=== PATIENT | female | born 1990 | race African-American/Black ===

== ENCOUNTER 2018-05-27 21:41 | Emergency (ER) | payer OTHER ==
--- NOTE | 2018-05-27 21:46 | PDOC ---
History of Present Illness - History of Present Illness Initial Comments: 05/27/18 22:05 The patient is a 28 year old female, with no significant past medical history, who presents to the emergency department with, 2 hours of sudden onset, 10/10 left flank pain. Patient notes that an hour after the flank pain onset she began to experience nausea with 5 episodes of nonbloody, nonbilious emesis. The patient endorses associated subjective fevers and chills, prompting her visit to the ER tonight. She denies similar episodes in the past. She denies a history of kidney stones. She denies recent headache or dizziness. She denies recent nausea, vomit, diarrhea or constipation. She denies recent dysuria, frequency, urgency or hematuria. She denies recent chest pain or shortness of breath. PAST MEDICAL HISTORY: no significant history PAST SURGICAL HISTORY: no significant history FAMILY HISTORY: no pertinent history SOCIAL HISTORY: Pt lives with family and is employed. MEDICATIONS: reviewed ALLERGIES: As per nursing notes ROS: +General: Subjective fevers and chills. No weakness, no weight loss HEENT: No change in vision. No sore throat,. No ear pain CardioVascular: No chest pain or shortness of breath Respiratory:No cough, or wheezing. +Gastrointestinal: Nausea. Vomiting. no diarrhea or constipation, No rectal bleeding Genitourinary: Left flank pain. No dysuria, hematuria, or frequency Musculoskeletal: No joint or muscle pain or swelling Neurologic: No headache, vertigo, dizziness or loss of consciousness Psychiatric: nor depression Skin: No rashes or easy bruising Endocrine: no increased thirst or abnormal weight change Allergic: no skin or latex allergy All other systems reviewed and normal Physical Exam: GENERAL: The patient is awake, alert, and fully oriented, in no acute distress. HEAD: Normal with no signs of trauma. EYES: Pupils equal, round and reactive to light, extraocular movements intact, sclera anicteric, conjunctiva clear. EXTREMITIES: Normal range of motion, no edema. +ABDOMEN/BACK: Left CVA/Flank tenderness. NEUROLOGICAL: Normal speech, normal gait. PSYCH: Normal mood, normal affect. SKIN: Warm, Dry, normal turgor, no rashes or lesions noted. <Reva Díaz - Last Filed: 05/27/18 22:04> - General History Source: Patient Exam Limitations: No Limitations - History of Present Illness Initial Comments: 05/27/18 23:24 A portion of this note was documented by scribe services under my direction. I have reviewed the details of the note, within reason, and agree with the documentation. The case summary and management plan written by me. Assessment and plan: This is a 28 her old female who comes in complaining of acute onset left flank pain radiating to her left lower quadrant. Patient said pain is associated with some nausea. Patient denies history of similar pain in the past. Patient denies history of kidney stones in the past. Patient has been unable to urinate since she had the pain so does not know if there is blood in her urine. Patient is otherwise healthy. Workup was initiated including CBC, comp, CAT scan of abdomen and pelvis to rule out stone Patient medicated with Toradol, 05/27/18 23:55 05/28/18 00:[address] was positive for a 2.9 mm obstructing distal left ureteral stone at the left UVJ causing some hydronephrosis and hydroureter. There is also a nonobstructing left renal stone noted as well Patient's urine is positive for nitrates, white cells red cells and bacteria. Patient was given a gram of ceftriaxone for her urinary tract infection. Patient has a urinary tract infection and a 2.6 mm stone at the left UVJ. Dr. Gurpreet James was called and discussed case with him. Dr. Eugene. He is a urologist and said that since the stone is small and asked left UVJ. It should pass within the next day or so. Patient is tolerating by mouth's. Her pain is controlled and she prefers to go home rather than be admitted. Patient was given IV antibiotics and will be discharged home on ampicillan. <Tosha Figueroa I - Last Filed: 05/28/18 01:31> - General Chief Complaint: Pain, Acute Stated Complaint: LT FLANK PAIN Time Seen by Provider: 05/27/18 21:45 Past History <Reva Díaz - Last Filed: 05/27/18 22:04> - Past Medical History Asthma: Yes - Suicide/Smoking/Psychosocial Hx Smoking History: Never smoked Hx Alcohol Use: No Substance Use Type: None <Tosha Figueroa I - Last Filed: 05/28/18 01:31> - Past Medical History Allergies/Adverse Reactions: Allergies Allergy/AdvReac Type Severity Reaction Status Date / Time No Known Allergies Allergy Verified 12/02/13 14:56 Home Medications: Ambulatory Orders Ampicillin Trihydrate [Ampicillin Trihydrate Capsule] 500 mg PO BID #20 cap *Physical Exam - Vital Signs Last Vital Signs Temp Pulse Resp BP Pulse Ox 97.6 F 66 18 141/119 H 100 05/27/18 21:44 05/27/18 21:44 05/27/18 21:44 05/27/18 21:44 05/27/18 21:44 <Reva Díaz - Last Filed: 05/27/18 22:04> *DC/Admit/Observation/Transfer - Attestations Scribe Attestion: 05/27/18 22:05 Documentation prepared by Reva Díaz, acting as medical examiner for Tosha Figueroa MD. <Reva Díaz - Last Filed: 05/27/18 22:04> - Discharge Dispostion Decision to Admit order: No <Tosha Figueroa I - Last Filed: 05/28/18 01:31> Diagnosis at time of Disposition: Renal colic on left side, Cystitis - Discharge Dispostion Disposition: HOME Condition at time of disposition: Stable - Prescriptions Prescriptions: Ampicillin Trihydrate [Ampicillin Trihydrate Capsule] 500 mg PO BID #20 cap - Referrals Referrals: Ijeoma Sagastume MD [Primary Care Provider] - Gilson Haji MD [Staff Physician] - - Patient Instructions Additional Instructions: For the infection take Ampicillan one tablet twice a day for 10 days. For the pain take Percocet one tablet as often as every 4-6 hours if needed. For nausea take Zofran 1 tablet as often as every 6-[address] as needed[address] Dr. Eugene and get an appointment for this week if possible. Return to the emergency department immediately with ANY new, persistent or worsening symptoms. Continue any medications as previously prescribed by your physician. You should follow up with your primary doctor as soon as possible regarding today's emergency department visit. . Please make sure your doctor reviews the results of your emergency evaluation. Thank you for coming to the Emergency Department today for your care. It was a pleasure to see you today. Please note that your evaluation is INCOMPLETE until you follow-up with your doctor. - Post Discharge Activity
[2018-05-27] MEDS ORDERED: ONDANSETRON 4 MG/2 ML VIAL IVPB ONE (21:47)
[2018-05-27] MEDS ORDERED: morphine CARPU-JECT 2 MG/1 ML DISP.SYRIN IVPUSH ONE (21:47)
[2018-05-27] MEDS ORDERED: KETOROLAC TROMETHAMINE 30 MG/1 ML VIAL IVPUSH ONE (21:47)
[2018-05-27] MEDS ORDERED: SODIUM CHLORIDE 1,000 ML IV ONE (21:47)
[2018-05-27 21:48] VITALS: BP 141/119; PULSE 66; TEMP 97.6; BMI 30.7
[2018-05-27] MEDS ORDERED: morphine SULFATE 4 MG/ML VIAL ONE (22:11)
[2018-05-27] MEDS ORDERED: ONDANSETRON 4 MG/2 ML VIAL ONE (22:11)
[2018-05-27] MEDS ORDERED: KETOROLAC TROMETHAMINE 30 MG/1 ML VIAL ONE (22:11)
[2018-05-27] MEDS ORDERED: KETOROLAC TROMETHAMINE 60 MG/2 ML VIAL IM ONE (22:30)
[2018-05-27] MEDS ORDERED: KETOROLAC TROMETHAMINE 60 MG/2 ML VIAL ONE (22:53)
[2018-05-27 23:47] LABS: HCG,QUALITATIVE URINE Negative
[2018-05-27 23:49] LABS: URINE APPEARANCE Slightly; URINE BILIRUBIN Negative (NEGATIVE); URINE COLOR Yellow; URINE GLUCOSE (UA) Negative (NEGATIVE); URINE KETONE 2+ (NEGATIVE); URINE LEUK ESTERASE 2+ (NEGATIVE); URINE NITRITE Negative (NEGATIVE); URINE PROTEIN 1+ (NEGATIVE)
[2018-05-27 23:50] LABS: EPI CELLS FEW /HPF; URINE BACTERIA 2+ /hpf (NEGATIVE); URINE RBC 40-60 /hpf (0-3)
[2018-05-28] MEDS ORDERED: cefTRIAXone SODIUM 1 GM VIAL ONE (00:32)
[2018-05-28] MEDS: CEFTRIAXONE 1 GM in DEXTROSE 5%-WATER - 100 ML IVPB ONE (00:34)
[2018-05-28] MEDS ORDERED: morphine CARPU-JECT 4 MG/1 ML DISP.SYRIN IVPUSH ONE (01:14)
[2018-05-28] MEDS ORDERED: morphine SULFATE 4 MG/ML VIAL ONE (01:17)
[2018-05-28 02:20] LABS: INR 1.09 (0.83-1.09); PROTHROMBIN TIME (PATIENT) 12.9 SEC (9.7-13.0)
[2018-05-28 02:23] LABS: ACTIVATED PTT 25.4 SECONDS (25.2-36.5)
[2018-05-28 02:37] LABS: ALK PHOS 123 U/L (45-117); ANION GAP 9 MMOL/L (8-16); BILIRUBIN,TOTAL 0.2 mg/dL (0.2-1); BLOOD UREA NITROGEN 18 mg/dL (7-18); CALCIUM 8.8 mg/dL (8.5-10.1); CHLORIDE 110 mmol/L (98-107); CO2 24 mmol/L (21-32); CREATININE 1.1 mg/dL (0.55-1.3); GLUCOSE,RANDOM 103 mg/dL (74-106); POTASSIUM 4.3 mmol/L (3.5-5.1); SGOT/AST 15 U/L (15-37); SGPT/ALT 21 U/L (13-61); SODIUM 143 mmol/L (136-145); TOT PROT 8.2 g/dl (6.4-8.2)
[2018-05-28 02:45] LABS: BASO % 0.2 % (0-2.0); HEMATOCRIT 34.6 % (32.4-45.2); HEMOGLOBIN 10.3 GM/dL (10.7-15.3); LYMPH % 4.4 % (8-40); MCH 21.1 pg (25.7-33.7); MCHC 29.8 g/dl (32.0-36.0); MEAN CELL VOLUME 70.7 fl (80-96); MEAN PLT VOLUME 9.8 fl (7.5-11.1); MONO % 2.9 % (3.8-10.2); NEUT % 92.5 % (42.8-82.8); PLATELET COUNT 242 K/MM3 (134-434); RDW 19.3 % (11.6-15.6); WHITE BLOOD COUNT 15.7 K/mm3 (4.0-10.0)
[2018-05-28 05:40] LABS: ANISOCYTOSIS 2+; MACROCYTOSIS 0; PLATELET ESTIMATE NORMAL
== END 2018-05-28 03:07 | disposition home or self-care (01) ==
LOC: FER 21:41
PROC: 3E03329 Introduction of Other Anti-infective into Peripheral Vein, Percutaneous Approach (ICD-10-PCS; principal; 2018-05-27)
PROC: 3E033NZ Introduction of Analgesics, Hypnotics, Sedatives into Peripheral Vein, Percutaneous Approach (ICD-10-PCS; 2018-05-27)
PROC: 3E033GC Introduction of Other Therapeutic Substance into Peripheral Vein, Percutaneous Approach (ICD-10-PCS; 2018-05-27)
PROC: 3E0337Z Introduction of Electrolytic and Water Balance Substance into Peripheral Vein, Percutaneous Approach (ICD-10-PCS; 2018-05-27)
PROC: 3E0233Z Introduction of Anti-inflammatory into Muscle, Percutaneous Approach (ICD-10-PCS; 2018-05-27)
DX: N13.2 Hydronephrosis with renal and ureteral calculous obstruction (principal); N30.90 Cystitis, unspecified without hematuria
CPT/HCPCS: 36415; 74176-TC; 80053; 81003; 81015; 83605; 84703; 85025; 85610; 85730; 87040; 87086; 99282-25; J7030

== ENCOUNTER 2019-07-30 05:09 | Inpatient (IN) | payer OTHER ==
[2019-07-30] MEDS ORDERED: ACETAMINOPHEN 1000 MG/100 ML VIAL (NON FORMULARY) IVPB ONE (05:16)
[2019-07-30] MEDS ORDERED: SODIUM CHLORIDE 1,000 ML IV STA (05:16)
[2019-07-30] MEDS ORDERED: ONDANSETRON 4 MG/2 ML VIAL IVPUSH ONE (05:16)
[2019-07-30] MEDS ORDERED: morphine CARPU-JECT 4 MG/1 ML DISP.SYRIN IVPUSH ONE ×2 (05:23→09:36)
--- NOTE | 2019-07-30 05:23 | PDOC ---
History of Present Illness - General Stated Complaint: VOMITING Time Seen by Provider: 07/30/19 05:22 History Source: Patient Exam Limitations: No Limitations - History of Present Illness Initial Comments: 29 year old female with PMH nephrolithiasis (passed on its own x3 months ago) presented to ED for right flank pain x1 hour. Pt reported nausea, vomiting. She denied abdominal pain, diarrhea, constipation, fever, chills, dysuria, increased urinary frequency. Pt reported she was treated for a UTI x1 week ago, symptoms have 100% improved. She reported today's symptoms feel similar to prior kidney stone. ROS General: denied fever, chills, generalized weakness. HEENT: denied sore throat, rhinorrhea, ear pain. Cardiovascular: denied chest pain, palpitations, syncope, diaphoresis. Respiratory: denied shortness of breath, cough, sputum production, hemoptysis. Gastrointestinal: denied abdominal pain, nausea, vomiting, diarrhea, constipation, blood in stool. Genitourinary: admitted to flank pain. denied dysuria, increased urinary frequency, hematuria, urinary incontinence. Back: denied back pain. Musculoskeletal: denied joint pain, muscle pain, joint swelling. Neurological: denied headache, dizziness, numbness, tingling, weakness. Integumentary: denied rash, laceration, abrasion. Hematologic/Lymphatic: denied bruising or bleeding. PE Constitutional: Well-nourished, Well-developed, appearing stated age. HEENT: head is normocephalic, atraumatic. EOMI. PERRLA. Neck: supple. Full ROM. Cardiovascular: regular heart rhythm. no murmurs. no pericardial friction rub. Respiratory: clear to auscultation bilaterally. no crackles, rhonchi or wheezing. no stridor. Gastrointestinal: soft, flat. tender to RUQ and epigastrium. craig negative. normal bowel sounds. no rebound, guarding, masses. Back: negative for CVA tenderness bilaterally. Extremities: peripheral pulses intact. no lower extremity edema. Neurological: CN 2-12 grossly intact. moves all four extremities. Psych: awake, alert, oriented x3. follows commands. answers questions appropriately. Past History - Past Medical History Allergies/Adverse Reactions: Allergies Allergy/AdvReac Type Severity Reaction Status Date / Time No Known Allergies Allergy Verified 07/30/19 06:28 Home Medications: Ambulatory Orders NK [No Known Home Medication] 07/30/19 Asthma: Yes COPD: No - Psycho Social/Smoking Cessation Hx Smoking History: Never smoked Hx Alcohol Use: No Substance Use Type: None ED Treatment Course - LABORATORY CBC & Chemistry Diagram: 07/30/19 06:00 07/30/19 06:00 Medical Decision Making - Medical Decision Making 29 year old female with above PMH presented to ED for right flank pain x1 hour associated with N/V. Initial Vital Signs Temp Pulse Resp BP Pulse Ox 98.2 F 64 18 132/85 100 07/30/19 06:05 07/30/19 06:05 07/30/19 06:05 07/30/19 06:05 07/30/19 06:05 Afebrile. No tachycardia. No tachypnea. Hypertensive. No hypoxia on room air. Labs ordered: CBC, CMP, serum , lipase, UA/UC Imaging ordered: CT abdomen/pelvis, RUQ US Medications ordered: tylenol IV, morphine 4 mg IV once, normal saline bolus 1000 cc once, zofran 4 mg IV once, pepcid 20 mg IV once 07/30/19 06:58 Laboratory Last Values WBC 14.0 K/mm3 (4.0-10.0) H 07/30/19 06:00 RBC 4.80 M/mm3 (3.60-5.2) 07/30/19 06:00 Hgb 10.5 GM/dL (10.7-15.3) L 07/30/19 06:00 Hct 34.6 % (32.4-45.2) 07/30/19 06:00 MCV 71.9 fl (80-96) L 07/30/19 06:00 MCH 21.9 pg (25.7-33.7) L 07/30/19 06:00 MCHC 30.4 g/dl (32.0-36.0) L 07/30/19 06:00 RDW 17.5 % (11.6-15.6) H 07/30/19 06:00 Plt Count 327 K/MM3 (134-434) D 07/30/19 06:00 MPV 9.0 fl (7.5-11.1) 07/30/19 06:00 Absolute Neuts (auto) 10.5 K/mm3 (1.5-8.0) H 07/30/19 06:00 Neutrophils % 74.5 % (42.8-82.8) 07/30/19 06:00 Lymphocytes % 18.5 % (8-40) D 07/30/19 06:00 Monocytes % 5.8 % (3.8-10.2) D 07/30/19 06:00 Eosinophils % 0.7 % (0-4.5) D 07/30/19 06:00 Basophils % 0.5 % (0-2.0) 07/30/19 06:00 Nucleated RBC % 0 % (0-0) 07/30/19 06:00 PT with INR 12.60 SEC (9.7-13.0) 07/30/19 06:00 INR 1.07 (0.83-1.09) 07/30/19 06:00 PTT (Actin FS) 26.4 SECONDS (25.2-36.5) 07/30/19 06:00 Serum , Qual Negative 07/30/19 06:00 Urine Color Yellow 07/30/19 05:30 Urine Appearance Cloudy 07/30/19 05:30 Urine pH 5.0 (5.0-8.0) 07/30/19 05:30 Ur Specific [place] 1.018 (1.010-1.035) 07/30/19 05:30 Urine Protein 1+ (NEGATIVE) H 07/30/19 05:30 Urine Glucose (UA) Negative (NEGATIVE) 07/30/19 05:30 Urine Ketones Negative (NEGATIVE) 07/30/19 05:30 Urine Blood 3+ (NEGATIVE) H 07/30/19 05:30 Urine Nitrite Negative (NEGATIVE) 07/30/19 05:30 Urine Bilirubin Negative (NEGATIVE) 07/30/19 05:30 Urine Urobilinogen 0.2 mg/dL (0.2-1.0) 07/30/19 05:30 Ur Leukocyte Esterase Trace (NEGATIVE) 07/30/19 05:30 Urine WBC (Auto) 8 /hpf (0-5) 07/30/19 05:30 Urine RBC (Auto) 431 /hpf (0-4) 07/30/19 05:30 Urine Casts (Auto) 3 /lpf (0-8) 07/30/19 05:30 U Epithel Cells (Auto) 6.6 /HPF (0-5/HPF) 07/30/19 05:30 Urine Bacteria (Auto) 78.3 /hpf (NEGATIVE) 07/30/19 05:30 Pt signed out to Dr. Alexander, pending CT imaging, CMP, RUQ US, dispo. Discharge - Discharge Information Problems reviewed: Yes Clinical Impression/Diagnosis: Cholecystitis with cholelithiasis Qualifiers: Cholelithiasis location: gallbladder Cholecystitis acuity: acute Biliary obstruction: without biliary obstruction Qualified Code(s): K80.00 - Calculus of gallbladder with acute cholecystitis without obstruction Condition: Stable - Follow up/Referral - Patient Discharge Instructions - Post Discharge Activity
[2019-07-30] MEDS ORDERED: FAMOTIDINE 20 MG/50 ML IVPB 20 MG/50 ML MG IVPB ONE (05:27)
[2019-07-30] MEDS ORDERED: MORPHINE SULFATE 2 MG/ML VIAL ONE (05:28)
[2019-07-30] MEDS ORDERED: ACETAMINOPHEN INJECTION 100 ML IVPB ONE (05:28)
[2019-07-30] MEDS ORDERED: ONDANSETRON 4 MG/2 ML VIAL ONE (05:28)
--- NOTE | 2019-07-30 05:33 | PDOC ---
Attending Attestation - Resident Resident Name: Pia Owusu - ED Attending Attestation I have performed the following: I have examined & evaluated the patient, The case was reviewed & discussed with the resident, I agree w/resident's findings & plan - HPI HPI: 07/30/19 06:32 R flank pain; like her old stones, she states that she has PMH nephrolithiasis ( passed on its own x3 months ago) presented to ED for right flank pain x1 hour. Pt reported nausea, vomiting. She denied abdominal pain, diarrhea, constipation , fever, chills, dysuria, increased urinary frequency. Pt reported she was treated for a UTI x1 week ago, symptoms have 100% improved. She reported today' s symptoms feel similar to prior kidney stone. - Physicial Exam PE: 08/01/19 02:49 Agree with resident exam. HEENT: NCAT. EOMI. PERRLA. Neck: supple. Full ROM. Cardiovascular: RRR. no murmurs. no pericardial friction rub. Respiratory:CTAB. no crackles, rhonchi or wheezing. no stridor. Gastrointestinal: soft, flat. tender to RUQ and epigastrium. craig negative. normal bowel sounds. no rebound, guarding, masses. Back: negative for CVA tenderness bilaterally. Extremities: peripheral pulses intact. no lower extremity edema. Neurological: CN 2-12 grossly intact. moves all four extremities. Psych: awake, alert, oriented x3. follows commands. answers questions appropriately. - Medical Decision Making 08/01/19 02:51 Pt has a UTI and an elevated WBC; SHE IS AWAITING IMAGING RESULTS AND SHE WILL BE SIGNED OUT TO THE DAY TEAM FOR FURTHER WORKUP AND MANAGEMENT
[2019-07-30 06:31] LABS: BASO % 0.5 % (0-2.0); EOS % 0.7 % (0-4.5); HEMATOCRIT 34.6 % (32.4-45.2); HEMOGLOBIN 10.5 GM/dL (10.7-15.3); LYMPH % 18.5 % (8-40); MCH 21.9 pg (25.7-33.7); MCHC 30.4 g/dl (32.0-36.0); MEAN CELL VOLUME 71.9 fl (80-96); MONO % 5.8 % (3.8-10.2); NEUT % 74.5 % (42.8-82.8); PLATELET COUNT 327 K/MM3 (134-434); RDW 17.5 % (11.6-15.6)
[2019-07-30 06:34] LABS: EPI CELLS 6.6 /HPF (0-5/HPF); HYALINE CASTS 3 /lpf (0-8); URINE APPEARANCE CLOUDY; URINE BACTERIA 78.3 /hpf (NEGATIVE); URINE BILIRUBIN NEGATIVE (NEGATIVE); URINE COLOR YELLOW; URINE GLUCOSE (UA) NEGATIVE (NEGATIVE); URINE KETONE NEGATIVE (NEGATIVE); URINE LEUK ESTERASE TRACE (NEGATIVE); URINE NITRITE NEGATIVE (NEGATIVE); URINE PROTEIN 1+ (NEGATIVE); URINE RBC 431 /hpf (0-4); URINE UROBILINOGEN 0.2 mg/dL (0.2-1.0); URINE WBC 8 /hpf (0-5)
[2019-07-30 06:44] LABS: INR 1.07 (0.83-1.09); PROTHROMBIN TIME (PATIENT) 12.6 SEC (9.7-13.0)
[2019-07-30 06:59] LABS: ALBUMIN 3.6 g/dl (3.4-5.0); BILIRUBIN,TOTAL 0.2 mg/dL (0.2-1); BLOOD UREA NITROGEN 13.4 mg/dL (7-18); CALCIUM 9.1 mg/dL (8.5-10.1); CREATININE 0.9 mg/dL (0.55-1.3); POTASSIUM 3.5 mmol/L (3.5-5.1); TOT PROT 7.2 g/dl (6.4-8.2)
--- NOTE | 2019-07-30 07:18 | PDOC ---
*Physical Exam - Vital Signs Last Vital Signs Temp Pulse Resp BP Pulse Ox 98.2 F 64 18 132/85 100 07/30/19 06:05 07/30/19 06:05 07/30/19 06:05 07/30/19 06:05 07/30/19 06:05 - Physical Exam MDM: Received sign out from resident Dr. Owusu. In short, pt is a 29 y/o female presenting with right flank pain w/ h/o nephrolithiasis. Found to have RUQ and epigastric tenderness on exam. Mild leukocytosis. LFTs within normal limits. Will f/u pending RUQ U/S and CTAP. RUQ U/S remarkable for mildly thickened gallbladder wall with multiple calculi. Leukocytosis. No fever or vital sign instability. Ordered LR IVFB, repeat morphine, and Zosyn. Pt reassessed. Tender in RUQ. No tenderness in RLQ. 30 Jul 2019 09:45 AM Page sent for Dr. Apple through office answering service. Awaiting call back. 30 Jul 2019 09:59 AM Telephone discussion with Dr. Apple. Verbally appraised of the pts HPI, ED course, and current plan of management. Will evaluate the pt. Requested the pt be admitted to med/surg under medicine service. 30 Jul 2019 09:57 AM Left message sent for Dr. Sagastume on cell phone. Unable to reach answering service through numbers provided. Awaiting call back. 30 Jul 2019 10:50 AM Telephone discussion with Dr. Sagastume. Verbally appraised of the pts HPI, ED course, and current plan of management. Would like the pt to be admitted to [facility] Hospitalist Service. Requested Dr. Thornton be used for GI , if deemed necessary by admitting team. Microblog sent to [facility] for admission. 30 Jul 2019 11:38 AM Telephone discussion with resident Dr. Sung. Verbally appraised of the pts HPI, ED course, and current plan of management. Will admit pt to med/surg for attending Dr. Thorne. ED Treatment Course - LABORATORY CBC & Chemistry Diagram: 07/30/19 06:00 07/30/19 06:00 - ADDITIONAL ORDERS Additional order review: Laboratory Results 07/30/19 07/30/19 07/30/19 06:00 06:00 06:00 PT with INR 12.60 INR 1.07 PTT (Actin FS) Sodium Potassium Chloride Carbon Dioxide Anion Gap BUN Creatinine Est GFR (CKD-EPI)AfAm Est GFR (CKD-EPI)NonAf Random Glucose Calcium Phosphorus 2.9 Magnesium Total Bilirubin AST ALT Alkaline Phosphatase Total Protein Albumin Lipase Serum , Qual Negative Urine Color Urine Appearance Urine pH Ur Specific [place] Urine Protein Urine Glucose (UA) Urine Ketones Urine Blood Urine Nitrite Urine Bilirubin Urine Urobilinogen Ur Leukocyte Esterase Urine WBC (Auto) Urine RBC (Auto) Urine Casts (Auto) U Epithel Cells (Auto) Urine Bacteria (Auto) 07/30/19 07/30/19 07/30/19 06:00 06:00 06:00 PT with INR INR PTT (Actin FS) 26.4 Sodium 143 Potassium 3.5 Chloride 108 H Carbon Dioxide 26 Anion Gap 9 BUN 13.4 Creatinine 0.9 Est GFR (CKD-EPI)AfAm 101.56 Est GFR (CKD-EPI)NonAf 87.63 Random Glucose 160 H Calcium 9.1 Phosphorus Magnesium 2.0 Total Bilirubin 0.2 AST 16 ALT 22 Alkaline Phosphatase 131 H Total Protein 7.2 Albumin 3.6 Lipase 77 Serum , Qual Urine Color Urine Appearance Urine pH Ur Specific [place] Urine Protein Urine Glucose (UA) Urine Ketones Urine Blood Urine Nitrite Urine Bilirubin Urine Urobilinogen Ur Leukocyte Esterase Urine WBC (Auto) Urine RBC (Auto) Urine Casts (Auto) U Epithel Cells (Auto) Urine Bacteria (Auto) 07/30/19 05:30 PT with INR INR PTT (Actin FS) Sodium Potassium Chloride Carbon Dioxide Anion Gap BUN Creatinine Est GFR (CKD-EPI)AfAm Est GFR (CKD-EPI)NonAf Random Glucose Calcium Phosphorus Magnesium Total Bilirubin AST ALT Alkaline Phosphatase Total Protein Albumin Lipase Serum , Qual Urine Color Yellow Urine Appearance Cloudy Urine pH 5.0 Ur Specific [place] 1.018 Urine Protein 1+ H Urine Glucose (UA) Negative Urine Ketones Negative Urine Blood 3+ H Urine Nitrite Negative Urine Bilirubin Negative Urine Urobilinogen 0.2 Ur Leukocyte Esterase Trace Urine WBC (Auto) 8 Urine RBC (Auto) 431 Urine Casts (Auto) 3 U Epithel Cells (Auto) 6.6 Urine Bacteria (Auto) 78.3 07/30/19 06:00 RBC 4.80 MCV 71.9 L MCHC 30.4 L RDW 17.5 H MPV 9.0 Neutrophils % 74.5 Lymphocytes % 18.5 D Monocytes % 5.8 D Eosinophils % 0.7 D Basophils % 0.5 - Medications Given in the ED: ED Medications Discontinued Medications Generic Name Dose Route Start Last Admin Trade Name Gabriel PRN Reason Stop Dose Admin Acetaminophen 1,000 mg 07/30/19 05:16 07/30/19 06:29 Ofirmev Injection - IVPB 07/30/19 05:17 1,000 mg ONCE ONE Administration Sodium Chloride 1,000 mls @ 1,000 mls/hr 07/30/19 05:16 07/30/19 06:32 Normal Saline - IV 07/30/19 06:15 1,000 mls/hr ASDIR STA Administration Famotidine/Sodium Chloride 20 mg in 50 mls @ 100 mls/hr 07/30/19 05:27 07:10 Pepcid 20 Mg Premixed Ivpb - IVPB 07/30/19 05:56 100 mls/hr ONCE ONE Administration Morphine Sulfate 4 mg 07/30/19 05:23 07/30/19 06:31 Morphine Injection - IVPUSH 07/30/19 05:24 4 mg ONCE ONE Administration Ondansetron HCl 4 mg 07/30/19 05:16 07/30/19 06:31 Zofran Injection IVPUSH 07/30/19 05:17 4 mg ONCE ONE Administration Discharge - Discharge Information Problems reviewed: Yes Clinical Impression/Diagnosis: Cholecystitis with cholelithiasis Qualifiers: Cholelithiasis location: gallbladder Cholecystitis acuity: acute Biliary obstruction: without biliary obstruction Qualified Code(s): K80.00 - Calculus of gallbladder with acute cholecystitis without obstruction Condition: Stable - Admission Yes - Follow up/Referral Referrals: Ijeoma Sagastume MD [Primary Care Provider] - - Patient Discharge Instructions - Post Discharge Activity
[2019-07-30] MEDS ORDERED: LACTATED RINGERS SOLUTION 1000 ML INFUS.BAG IV ONE (09:36)
[2019-07-30] MEDS ORDERED: PIPERACILLIN/TAZOB 3.375 GM 3.375 GM in DEXTROSE 5%-WATER - 50 ML IVPB ONE (09:49)
[2019-07-30] MEDS ORDERED: MORPHINE SULFATE 8 MG/ML VIAL ONE (10:21)
[2019-07-30] MEDS ORDERED: PIPERACILLIN/TAZOB 3.375 GM 3.375 GM/50 ML BAG IVPB ONE (10:23)
[2019-07-30 10:50] LABS: ANISOCYTOSIS 1+; MACROCYTOSIS 0; PLATELET ESTIMATE NORMAL
[2019-07-30] MEDS: LACTATED RINGERS SOLUTION 1,000 ML/1,000 ML INFUS.BAG IV SCH (12:46)
[2019-07-30] MEDS ORDERED: LACTATED RINGERS SOLUTION 1,000 ML IV SCH (13:15)
--- NOTE | 2019-07-30 13:34 | HP ---
Admitting History and Physical - Primary Care Physician PCP: Ijeoma Sagastume - Admission Chief Complaint: RUQ pain History of Present Illness: 29 year old female with PMH nephrolithiasis (passed on its own x3 months ago) presented to ED for right flank pain after eating pizza. Pt reported nausea with multiple episodes of nonbloody, nonbilious emesis. She denied abdominal pain, diarrhea, constipation, fever, chills, dysuria, increased urinary frequency. Pt reported she was treated for a UTI x1 week ago with resolution of symptoms. States the pain was similar to kidney stone in the past but not as intense. History Source: Patient Limitations to Obtaining History: No Limitations - Past Medical History Renal/: Yes: Renal Calculi, UTI (treated with abx i week ago) - Smoking History Smoking history: Never smoked Have you smoked in the past 12 months: No - Alcohol/Substance Use Hx Alcohol Use: No - Social History Usual Living Arrangement: Yes: With Parent ADL: Independent Occupation: clerical work History of Recent Travel: No Home Medications - Allergies Allergies/Adverse Reactions: Allergies Allergy/AdvReac Type Severity Reaction Status Date / Time No Known Allergies Allergy Verified 07/30/19 06:28 - Home Medications Home Medications: Ambulatory Orders NK [No Known Home Medication] 07/30/19 Family Medical History Family History: Unremarkable Review of Systems - Review of Systems Constitutional: reports: Loss of Appetite (x 3 days) Eyes: reports: No Symptoms HENT: reports: No Symptoms Neck: reports: No Symptoms Cardiovascular: reports: No Symptoms Respiratory: reports: No Symptoms Gastrointestinal: reports: Abdominal Pain, Nausea, Vomiting Genitourinary: reports: No Symptoms Breasts: reports: No Symptoms Reported Musculoskeletal: reports: No Symptoms Integumentary: reports: No Symptoms Neurological: reports: No Symptoms Endocrine: reports: No Symptoms Hematology/Lymphatic: reports: No Symptoms Psychiatric: reports: No Symptoms Pain Intensity: 6 Physical Examination Vital Signs: Vital Signs Temperature 97.9 F 07/30/19 11:59 Pulse Rate 60 07/30/19 11:59 Respiratory Rate 18 07/30/19 06:05 Blood Pressure 106/52 L 07/30/19 11:59 O2 Sat by Pulse Oximetry (%) 100 07/30/19 11:59 Constitutional: Yes: Well Nourished, No Distress, Calm Eyes: Yes: WNL, Conjunctiva Clear, EOM Intact HENT: Yes: WNL, Atraumatic, Normocephalic Neck: Yes: WNL, Supple, Trachea Midline Cardiovascular: Yes: WNL, Regular Rate and Rhythm Respiratory: Yes: WNL, Regular, CTA Bilaterally Gastrointestinal: Yes: Normal Bowel Sounds, Soft, Tenderness (to RUQ), Tenderness, Epigastrium ...Rectal Exam: Yes: Deferred Renal/: Yes: WNL Breast(s): Yes: WNL Musculoskeletal: Yes: WNL Extremities: Yes: WNL Edema: No Peripheral Pulses WNL: Yes Peripheral Pulses: Left Radial: 2+, Right Radial: 2+, Left Doralis Pedis: 2+, Right Dorsalis Pedis: 2+, Left Femoral: 2+, Right Femoral: 2+ Integumentary: Yes: WNL Neurological: Yes: WNL, Alert, Oriented ...Motor Strength: WNL Psychiatric: Yes: WNL Labs: CBC, BMP 07/30/19 06:00 07/30/19 06:00 Imaging - Results Cat Scan: Report Reviewed (4mm right uretral calculi withmild hydro. BL nephrolithlias , no obstruction) Ultrasound: Report Reviewed (Abd: slightly thickened gallbladder with multiple calculi) Problem List - Problems (1) Prophylactic measure Assessment/Plan: FEN NPO monitor electrolytes IVF @ 125cc/hr DVT as per surgical team Dispo mainatin as in patient full code discharge planning Code(s): Z29.9 - ENCOUNTER FOR PROPHYLACTIC MEASURES, UNSPECIFIED (2) Cholecystitis with cholelithiasis Assessment/Plan: thickened gallbladder with multiple stones surgery to see patient continue zosyn 3.375mg q8h consult placed to ID Code(s): K80.10 - CALCULUS OF GALLBLADDER W CHRONIC CHOLECYST W/O OBSTRUCTION Qualifiers: Cholelithiasis location: gallbladder Cholecystitis acuity: acute Biliary obstruction: without biliary obstruction Qualified Code(s): K80.00 - Calculus of gallbladder with acute cholecystitis without obstruction (3) Abdominal discomfort Assessment/Plan: NPO IVF abx zofran for n/v Code(s): R10.9 - UNSPECIFIED ABDOMINAL PAIN Visit type - Emergency Visit Emergency Visit: Yes ED Registration Date: 07/30/19 Care time: The patient presented to the Emergency Department on the above date and was hospitalized for further evaluation of their emergent condition. - New Patient This patient is new to me today: Yes Date on this admission: 07/30/19 - Critical Care Critical Care patient: No
[2019-07-30] MEDS ORDERED: PIPERACILLIN/TAZOBACTAM 3.375 GM VIAL IVPB ONE (17:12)
[2019-07-30] MEDS ORDERED: DEXTROSE 5%-WATER - 50 ML IVPB ONE (17:12)
[2019-07-30] MEDS: PIPERACILLIN/TAZOB 3.375 GM 3.375 GM in DEXTROSE 5%-WATER - 50 ML IVPB SCH (17:15)
[2019-07-30] MEDS ORDERED: FLU VACCINE QUAD 60 MCG/0.5 ML (MDV 19-20) IM ONE (19:36)
[2019-07-30 19:47] VITALS: BMI 32.3
[2019-07-31] MEDS ORDERED: IBUPROFEN 400 MG TABLET (FP) PO ONE
[2019-07-31] MEDS ORDERED: ACETAMINOPHEN 1000 MG/100 ML VIAL (NON FORMULARY) IVPB ONE (00:37)
[2019-07-31] MEDS ORDERED: PIPERACILLIN/TAZOBACTAM 3.375 GM VIAL IVPB ONE ×3 (01:01→17:27)
[2019-07-31] MEDS ORDERED: DEXTROSE 5%-WATER - 50 ML IVPB ONE ×3 (01:02→17:27)
[2019-07-31] MEDS: PIPERACILLIN/TAZOB 3.375 GM 3.375 GM in DEXTROSE 5%-WATER - 50 ML IVPB SCH ×3 (01:39→17:37)
--- NOTE | 2019-07-31 06:54 | CONSULT ---
Consult Consult Specialty:: surgery Reason for Consultation:: Abd pain - History of Present Illness History of Present Illness: 29 year old female with PMH nephrolithiasis (passed on its own x3 months ago) presented to ED for right flank pain after eating pizza.She describes her pain more to the flank and back. Pt reported nausea with multiple episodes of nonbloody, nonbilious emesis. She denied abdominal pain, diarrhea, constipation , fever, chills, dysuria, increased urinary frequency. Pt reported she was treated for a UTI x1 week ago with resolution of symptoms. States the pain was similar to kidney stone. - History Source History Provided By: Patient - Past Medical History Renal/: Yes: Renal Calculi, UTI (treated with abx i week ago) ...: No - Alcohol/Substance Use Hx Alcohol Use: No - Smoking History Smoking history: Never smoked Have you smoked in the past 12 months: No - Social History ADL: Independent Occupation: clerical work History of Recent Travel: No Home Medications - Allergies Allergies/Adverse Reactions: Allergies Allergy/AdvReac Type Severity Reaction Status Date / Time No Known Allergies Allergy Verified 07/30/19 06:28 - Home Medications Home Medications: Ambulatory Orders NK [No Known Home Medication] 07/30/19 Physical Exam Vital Signs: Vital Signs Temperature 98.3 F 07/31/19 05:35 Pulse Rate 68 07/31/19 05:35 Respiratory Rate 18 07/31/19 05:35 Blood Pressure 113/67 07/31/19 05:35 O2 Sat by Pulse Oximetry (%) 100 07/30/19 21:00 Labs: CBC, BMP 07/30/19 06:00 07/30/19 06:00 Imaging - Results Cat Scan: Report Reviewed, Image Reviewed Ultrasound: Report Reviewed, Image Reviewed Problem List - Problems (1) Cholecystitis with cholelithiasis Code(s): K80.10 - CALCULUS OF GALLBLADDER W CHRONIC CHOLECYST W/O OBSTRUCTION Qualifiers: Cholelithiasis location: gallbladder Cholecystitis acuity: acute Biliary obstruction: without biliary obstruction Qualified Code(s): K80.00 - Calculus of gallbladder with acute cholecystitis without obstruction (2) Renal colic on left side Code(s): N23 - UNSPECIFIED RENAL COLIC (3) UTI (urinary tract infection) Code(s): N39.0 - URINARY TRACT INFECTION, SITE NOT SPECIFIED Assessment/Plan 29 yr old with right side flank pain, elevated wbc and +3 blood in the urine , Gall stones by ultrasound. Acute cholecystitis is a possiblity, would continue IV hydration and Antibiotics. HIDA scan to determine if there is definitive evidence of cystic duct obstruction
--- NOTE | 2019-07-31 11:27 | PN ---
Progress Note, Physician Chief Complaint: feeling better reports Flank pain resolved History of Present Illness: 29 year old female with PMH nephrolithiasis (passed on its own x3 months ago) presented to ED for right flank pain after eating pizza.She describes her pain more to the flank and back. Pt reported nausea with multiple episodes of nonbloody, nonbilious emesis. She denied abdominal pain, diarrhea, constipation , fever, chills, dysuria, increased urinary frequency. Pt reported she was treated for a UTI x1 week ago with resolution of symptoms. States the pain was similar to kidney stone. - Current Medication List Current Medications: Active Medications Lactated Ringer's (Lactated Ringers Solution) 1,000 ml in 1,000 mls @ 125 mls/ hr IV ASDIR GIA Last Admin: 07/30/19 12:46 Dose: 125 mls/hr Lactated Ringer's (Lactated Ringers Solution) 1,000 mls @ 125 mls/hr IV ASDIR GIA Last Admin: 07/30/19 15:10 Dose: 125 mls/hr Piperacillin Sod/Tazobactam (Sod 3.375 gm/ Dextrose) 50 mls @ 100 mls/hr IVPB Q8H-IV GIA; Protocol Piperacillin Sod/Tazobactam (Sod 3.375 gm/ Dextrose) 50 mls @ 100 mls/hr IVPB Q8H-IV GIA; Protocol Stop: 07/31/19 17:59 Last Admin: 07/31/19 10:10 Dose: 100 mls/hr Ondansetron HCl (Zofran Injection) 4 mg IVPUSH Q6H PRN PRN Reason: NAUSEA - Objective Vital Signs: Vital Signs Temperature 98.3 F 07/31/19 05:35 Pulse Rate 68 07/31/19 05:35 Respiratory Rate 18 07/31/19 05:35 Blood Pressure 113/67 07/31/19 05:35 O2 Sat by Pulse Oximetry (%) 100 07/30/19 21:00 Labs: CBC, BMP 07/30/19 06:00 07/30/19 06:00 INR, PTT INR 1.07 (0.83-1.09) 07/30/19 06:00 Problem List - Problems (1) Cholecystitis with cholelithiasis Code(s): K80.10 - CALCULUS OF GALLBLADDER W CHRONIC CHOLECYST W/O OBSTRUCTION Qualifiers: Cholelithiasis location: gallbladder Cholecystitis acuity: acute Biliary obstruction: without biliary obstruction Qualified Code(s): K80.00 - Calculus of gallbladder with acute cholecystitis without obstruction (2) Renal colic on left side Code(s): N23 - UNSPECIFIED RENAL COLIC (3) UTI (urinary tract infection) Code(s): N39.0 - URINARY TRACT INFECTION, SITE NOT SPECIFIED Assessment/Plan clinically improving Recommend HIDA scan for evaluation of GB
[2019-07-31] MEDS: LACTATED RINGERS SOLUTION 1,000 ML IV SCH (12:45)
[2019-07-31] MEDS: PANTOPRAZOLE SODIUM 40 MG VIAL IVPUSH SCH (12:45)
[2019-07-31] MEDS: LACTATED RINGERS SOLUTION 1,000 ML/1,000 ML INFUS.BAG IV SCH (12:46)
[2019-07-31] MEDS ORDERED: ONDANSETRON 4 MG/2 ML VIAL IVPUSH PRN (13:01)
--- NOTE | 2019-07-31 14:30 | CON.ID ---
Consult - History of Present Illness History of Present Illness: 29 y.o. female with PMH of nephrolithiasis who was recently treated for a UTI ( completed 7 day course, does not recall name of antibiotic presented with c/o RT flank pain with episodes of nausea non-bloody vomiting. Pt denies any recent fever or chills. In the ER pt was afebrile with normal vital signs but noted to have leukocytosis (wbc 14K), U/A with +blood/trace hematuria. Imaging revealed thickened GB wall with multiple calculi in addition to Rt ureteral calculous and mild Rt hydronephrosis. She is currently alert but c/o mild epigastric pain and nausea but with Rt flank pain (abd pain 3/10 intensity). Also c/o chest discomfort but no SOB or cough recently. Appears comfortable. - Past Medical History Renal/: Yes: Renal Calculi, UTI (treated with abx i week ago) ...: No - Alcohol/Substance Use Hx Alcohol Use: No - Smoking History Smoking history: Never smoked Have you smoked in the past 12 months: No - Social History ADL: Independent Occupation: clerical work History of Recent Travel: No Home Medications - Allergies Allergies/Adverse Reactions: Allergies Allergy/AdvReac Type Severity Reaction Status Date / Time No Known Allergies Allergy Verified 07/30/19 06:28 - Home Medications Home Medications: Ambulatory Orders NK [No Known Home Medication] 07/30/19 Review of Systems - Review of Systems Constitutional: reports: Loss of Appetite Eyes: reports: No Symptoms HENT: reports: No Symptoms Neck: reports: No Symptoms Cardiovascular: reports: Chest Pain Respiratory: reports: No Symptoms Gastrointestinal: reports: Nausea Genitourinary: reports: Flank Pain (Rt flank) Musculoskeletal: reports: No Symptoms Integumentary: reports: No Symptoms Neurological: reports: No Symptoms Endocrine: reports: No Symptoms Hematology/Lymphatic: reports: No Symptoms Psychiatric: reports: No Symptoms Pain Intensity: 3 Physical Exam Vital Signs: Vital Signs Temperature 98.2 F 07/31/19 10:09 Pulse Rate 57 L 07/31/19 10:09 Respiratory Rate 18 07/31/19 10:09 Blood Pressure 120/63 07/31/19 10:09 O2 Sat by Pulse Oximetry (%) 100 07/31/19 09:00 Constitutional: Yes: No Distress, Calm Eyes: Yes: Conjunctiva Clear Neck: Yes: Supple Cardiovascular: Yes: Regular Rate and Rhythm Respiratory: Yes: CTA Bilaterally Gastrointestinal: Yes: Normal Bowel Sounds, Soft Renal/: Yes: CVA Tenderness - Right Musculoskeletal: Yes: WNL Extremities: Yes: WNL Edema: No Integumentary: Yes: WNL Neurological: Yes: Alert, Oriented Labs: CBC, BMP 07/30/19 06:00 07/30/19 06:00 Laboratory Tests 07/30/19 07/30/19 07/30/19 05:30 06:00 06:00 WBC 14.0 H RBC 4.80 Hgb 10.5 L Hct 34.6 MCV 71.9 L MCH 21.9 L MCHC 30.4 L RDW 17.5 H Plt Count 327 D MPV 9.0 Absolute Neuts (auto) 10.5 H Neutrophils % 74.5 Lymphocytes % 18.5 D Monocytes % 5.8 D Eosinophils % 0.7 D Basophils % 0.5 Nucleated RBC % 0 Hypochromia 1+ Platelet Estimate Normal Polychromasia 1+ Poikilocytosis 0 Anisocytosis 1+ Microcytosis 1+ Macrocytosis 0 PT with INR INR PTT (Actin FS) 26.4 Sodium Potassium Chloride Carbon Dioxide Anion Gap BUN Creatinine Est GFR (CKD-EPI)AfAm Est GFR (CKD-EPI)NonAf Random Glucose Calcium Phosphorus Magnesium Total Bilirubin AST ALT Alkaline Phosphatase Total Protein Albumin Lipase Serum , Qual Urine Color Yellow Urine Appearance Cloudy Urine pH 5.0 Ur Specific [place] 1.018 Urine Protein 1+ H Urine Glucose (UA) Negative Urine Ketones Negative Urine Blood 3+ H Urine Nitrite Negative Urine Bilirubin Negative Urine Urobilinogen 0.2 Ur Leukocyte Esterase Trace Urine WBC (Auto) 8 Urine RBC (Auto) 431 Urine Casts (Auto) 3 U Epithel Cells (Auto) 6.6 Urine Bacteria (Auto) 78.3 Blood Type Antibody Screen 07/30/19 07/30/19 07/30/19 06:00 06:00 06:00 WBC RBC Hgb Hct MCV MCH MCHC RDW Plt Count MPV Absolute Neuts (auto) Neutrophils % Lymphocytes % Monocytes % Eosinophils % Basophils % Nucleated RBC % Hypochromia Platelet Estimate Polychromasia Poikilocytosis Anisocytosis Microcytosis Macrocytosis PT with INR INR PTT (Actin FS) Sodium 143 Potassium 3.5 Chloride 108 H Carbon Dioxide 26 Anion Gap 9 BUN 13.4 Creatinine 0.9 Est GFR (CKD-EPI)AfAm 101.56 Est GFR (CKD-EPI)NonAf 87.63 Random Glucose 160 H Calcium 9.1 Phosphorus 2.9 Magnesium 2.0 Total Bilirubin 0.2 AST 16 ALT 22 Alkaline Phosphatase 131 H Total Protein 7.2 Albumin 3.6 Lipase 77 Serum , Qual Urine Color Urine Appearance Urine pH Ur Specific [place] Urine Protein Urine Glucose (UA) Urine Ketones Urine Blood Urine Nitrite Urine Bilirubin Urine Urobilinogen Ur Leukocyte Esterase Urine WBC (Auto) Urine RBC (Auto) Urine Casts (Auto) U Epithel Cells (Auto) Urine Bacteria (Auto) Blood Type Antibody Screen 07/30/19 07/30/19 07/30/19 06:00 06:00 06:00 WBC RBC Hgb Hct MCV MCH MCHC RDW Plt Count MPV Absolute Neuts (auto) Neutrophils % Lymphocytes % Monocytes % Eosinophils % Basophils % Nucleated RBC % Hypochromia Platelet Estimate Polychromasia Poikilocytosis Anisocytosis Microcytosis Macrocytosis PT with INR 12.60 INR 1.07 PTT (Actin FS) Sodium Potassium Chloride Carbon Dioxide Anion Gap BUN Creatinine Est GFR (CKD-EPI)AfAm Est GFR (CKD-EPI)NonAf Random Glucose Calcium Phosphorus Magnesium Total Bilirubin AST ALT Alkaline Phosphatase Total Protein Albumin Lipase Serum , Qual Negative Urine Color Urine Appearance Urine pH Ur Specific [place] Urine Protein Urine Glucose (UA) Urine Ketones Urine Blood Urine Nitrite Urine Bilirubin Urine Urobilinogen Ur Leukocyte Esterase Urine WBC (Auto) Urine RBC (Auto) Urine Casts (Auto) U Epithel Cells (Auto) Urine Bacteria (Auto) Blood Type O POSITIVE Antibody Screen Negative 07/30/19 11:30 WBC RBC Hgb Hct MCV MCH MCHC RDW Plt Count MPV Absolute Neuts (auto) Neutrophils % Lymphocytes % Monocytes % Eosinophils % Basophils % Nucleated RBC % Hypochromia Platelet Estimate Polychromasia Poikilocytosis Anisocytosis Microcytosis Macrocytosis PT with INR INR PTT (Actin FS) Sodium Potassium Chloride Carbon Dioxide Anion Gap BUN Creatinine Est GFR (CKD-EPI)AfAm Est GFR (CKD-EPI)NonAf Random Glucose Calcium Phosphorus Magnesium Total Bilirubin AST ALT Alkaline Phosphatase Total Protein Albumin Lipase Serum , Qual Urine Color Urine Appearance Urine pH Ur Specific [place] Urine Protein Urine Glucose (UA) Urine Ketones Urine Blood Urine Nitrite Urine Bilirubin Urine Urobilinogen Ur Leukocyte Esterase Urine WBC (Auto) Urine RBC (Auto) Urine Casts (Auto) U Epithel Cells (Auto) Urine Bacteria (Auto) Blood Type O POSITIVE Antibody Screen Microbiology 07/30/19 05:30 Urine - Urine Clean Catch Urine Culture - Final Normal Urogenital [facility] - Results Cat Scan: Report Reviewed Ultrasound: Report Reviewed Problem List - Problems (1) Cholecystitis with cholelithiasis Code(s): K80.10 - CALCULUS OF GALLBLADDER W CHRONIC CHOLECYST W/O OBSTRUCTION Qualifiers: Cholelithiasis location: gallbladder Cholecystitis acuity: acute Biliary obstruction: without biliary obstruction Qualified Code(s): K80.00 - Calculus of gallbladder with acute cholecystitis without obstruction (2) Abdominal discomfort Code(s): R10.9 - UNSPECIFIED ABDOMINAL PAIN Assessment/Plan 29 y.o. female with PMH of nephrolithiasis who was recently treated for a UTI ( completed 7 day course, does not recall name of antibiotic presented with c/o RT flank pain with episodes of nausea non-bloody vomiting and epigastric discomfort Leukocytosis Possible acute cholecystitis Rt flank pain/Hematuria/Rt nephrolithiasis Hx of nephrolithiasis s/p UTI -- awaiting HIDA scan -- continue antibiotics for now -- monitor wbc trend -- consider Urology evaluation -- Urine culture no growth -- Surgery following -- Pt c/o chest discomfort, suggest EKG / work up to r/o Cardiac etiology Will follow Thank you
--- NOTE | 2019-07-31 15:41 | PN ---
Progress Note, Physician Chief Complaint: C/o epigastric burning. Asking for food but still c/o RUQ pain History of Present Illness: 29 year old female with PMH nephrolithiasis (passed on its own x3 months ago) presented to ED for right flank pain after eating pizza. Pt reported nausea with multiple episodes of nonbloody, nonbilious emesis. She denied abdominal pain, diarrhea, constipation, fever, chills, dysuria, increased urinary frequency. Pt reported she was treated for a UTI x1 week ago with resolution of symptoms. States the pain was similar to kidney stone in the past but not as intense. - Current Medication List Current Medications: Active Medications Piperacillin Sod/Tazobactam (Sod 3.375 gm/ Dextrose) 50 mls @ 100 mls/hr IVPB Q8H-IV GIA; Protocol Lactated Ringer's (Lactated Ringers Solution) 1,000 mls @ 75 mls/hr IV ASDIR GIA Last Admin: 07/31/19 12:45 Dose: Not Given Ondansetron HCl (Zofran Injection) 4 mg IVPUSH Q6H PRN PRN Reason: NAUSEA Pantoprazole Sodium (Protonix Iv) 40 mg IVPUSH DAILY [facility] Last Admin: 07/31/19 12:45 Dose: 40 mg - Objective Vital Signs: Vital Signs Temperature 98.2 F 07/31/19 10:09 Pulse Rate 57 L 07/31/19 10:09 Respiratory Rate 18 07/31/19 10:09 Blood Pressure 120/63 07/31/19 10:09 O2 Sat by Pulse Oximetry (%) 100 07/31/19 09:00 Constitutional: Yes: Well Nourished, No Distress, Calm Eyes: Yes: WNL, Conjunctiva Clear HENT: Yes: WNL, Atraumatic, Normocephalic Neck: Yes: WNL, Supple, Trachea Midline Cardiovascular: Yes: WNL, Regular Rate and Rhythm Respiratory: Yes: WNL, Regular, CTA Bilaterally Gastrointestinal: Yes: Normal Bowel Sounds, Soft, Tenderness (RUQ), Tenderness, Epigastrium (burning) ...Rectal Exam: Yes: Deferred Genitourinary: Yes: Oliguria Breast(s): Yes: WNL Musculoskeletal: Yes: WNL Extremities: Yes: WNL Edema: No Peripheral Pulses WNL: Yes Peripheral Pulses: Left Radial: 2+, Right Radial: 2+, Left Doralis Pedis: 2+, Right Dorsalis Pedis: 2+, Left Femoral: 2+, Right Femoral: 2+ Integumentary: Yes: WNL Neurological: Yes: WNL, Alert, Oriented ...Motor Strength: WNL Psychiatric: Yes: WNL Labs: CBC, BMP 07/30/19 06:00 07/30/19 06:00 INR, PTT INR 1.07 (0.83-1.09) 07/30/19 06:00 - ....Imaging Cat Scan: Report Reviewed (Cat Scan:4mm right uretral calculi withmild hydro. BL nephrolithlias , no obstruction) Ultrasound: Report Reviewed (Ultrasound: Abd: slightly thickened gallbladder with multiple calculi) Other: Pending (HIDA scan) Problem List - Problems (1) Prophylactic measure Assessment/Plan: FEN NPO-can have a few ice chips monitor electrolytes decrease IVF to 75cc/hr-c/o urinary frequency from IVF DVT as per surgical team Dispo mainatin as in patient full code discharge planning Code(s): Z29.9 - ENCOUNTER FOR PROPHYLACTIC MEASURES, UNSPECIFIED (2) Cholecystitis with cholelithiasis Assessment/Plan: thickened gallbladder with multiple stones surgery following continue zosyn 3.375mg q8h HIDA scan ordered Code(s): K80.10 - CALCULUS OF GALLBLADDER W CHRONIC CHOLECYST W/O OBSTRUCTION Qualifiers: Cholelithiasis location: gallbladder Cholecystitis acuity: acute Biliary obstruction: without biliary obstruction Qualified Code(s): K80.00 - Calculus of gallbladder with acute cholecystitis without obstruction (3) Abdominal discomfort Assessment/Plan: NPO IVF abx zofran for n/v Code(s): R10.9 - UNSPECIFIED ABDOMINAL PAIN (4) Epigastric abdominal pain Assessment/Plan: c/o "burning going up her chest" do not feel this is ACS but will do EKG to r/o ischemic changes Code(s): R10.13 - EPIGASTRIC PAIN (5) Emotional upset Assessment/Plan: pt is upset that she is admitted to the hospital and HIDA scan can not be done today she is clinically stable and on IVF and abx & therefor non-emergent scan will be done tomorrow Code(s): F43.20 - ADJUSTMENT DISORDER, UNSPECIFIED Visit type - Emergency Visit Emergency Visit: Yes ED Registration Date: 07/30/19 Care time: The patient presented to the Emergency Department on the above date and was hospitalized for further evaluation of their emergent condition. - New Patient This patient is new to me today: No - Critical Care Critical Care patient: No - Discharge Referral Referred to [facility] Med [facility].C[facility] No
--- NOTE | 2019-07-31 17:50 | EKG ---
Test Reason : Blood Pressure : / mmHG Vent. Rate : 065 BPM Atrial Rate : 065 BPM P-R Int : 152 ms QRS Dur : 090 ms QT Int : 402 ms P-R-T Axes : 030 006 004 degrees QTc Int : 418 ms NORMAL SINUS RHYTHM NORMAL ECG NO PREVIOUS ECGS AVAILABLE Confirmed by JOSSE SAUCEDO MD ([id number]) on 07/31/2019 5:49:34 PM Referred By: Bianka GILL Confirmed By:JOSSE SAUCEDO MD
[2019-08-01] MEDS ORDERED: PIPERACILLIN/TAZOBACTAM 3.375 GM VIAL IVPB ONE ×3 (01:20→17:14)
[2019-08-01] MEDS ORDERED: DEXTROSE 5%-WATER - 50 ML IVPB ONE ×3 (01:21→17:15)
[2019-08-01] MEDS: PIPERACILLIN/TAZOB 3.375 GM 3.375 GM in DEXTROSE 5%-WATER - 50 ML IVPB SCH ×3 (01:23→17:17)
[2019-08-01] MEDS: LACTATED RINGERS SOLUTION 1,000 ML IV SCH (07:42)
[2019-08-01] MEDS: PANTOPRAZOLE SODIUM 40 MG VIAL IVPUSH SCH (10:57)
--- NOTE | 2019-08-01 12:20 | PN ---
Progress Note (short form) - Note Progress Note: SURGERY 29yo F h/o RUQ pain and cholelithiasis, pt seen and examined at bedside. Pt states that she continues to have RUQ tenderness, but denies n/v, fever, chills. Pt states that she really wants to eat food and is hungry. According to nurse pt ate a bag of chips last night despite only being ordered for clear liquids. Pt states she is apprehensive about having her gallbladder out. Last Vital Signs Temp Pulse Resp BP Pulse Ox 98.1 F 67 20 123/65 99 08/01/19 06:00 08/01/19 06:00 08/01/19 06:00 08/01/19 06:00 07/31/19 21:00 CBC, BMP 07/30/19 06:00 07/30/19 06:00 PE: Gen: A&O X3 Resp: breathing comfortably Abd: soft, nondistended, RUQ tenderness with palpation Ext: no edema. Problem List - Problems (1) Cholecystitis with cholelithiasis Assessment/Plan: Plan -no need for acute inpatient surgery at this time. -pt should follow up with Dr. Apple as outpatient in his office to set up outpatient cholecystectomy -adv diet as tolerated Pt discussed with Dr. Apple who agrees with plan Code(s): K80.10 - CALCULUS OF GALLBLADDER W CHRONIC CHOLECYST W/O OBSTRUCTION Qualifiers: Cholelithiasis location: gallbladder Cholecystitis acuity: acute Biliary obstruction: without biliary obstruction Qualified Code(s): K80.00 - Calculus of gallbladder with acute cholecystitis without obstruction
--- NOTE | 2019-08-01 12:44 | PN ---
Physical Exam: SUBJECTIVE: Patient seen and examined, feels better. denies abdominal pain, nausea or vomiting. OBJECTIVE: Patient is a 29 year old female with a past medical history of nephrolithiasis (passed on its own x 3 months ago) presented to ED for right flank pain after eating pizza. Pt reported nausea with multiple episodes of nonbloody, nonbilious emesis. She denied abdominal pain, diarrhea, constipation, fever, chills, dysuria, increased urinary frequency. Pt reported she was treated for a UTI x 1 week ago with resolution of symptoms. States the pain was similar to kidney stone in the past but not as intense. Patient has been kept NPO since admission, now reports no abdominal pain. no further nausea or vomiting. HIDA negative. start on diet as tolerated, she is refusing clear/or full liquid. wants to try regular diet. will order low chol/low fat and monitor. Vital Signs Period Temp Pulse Resp BP Sys/Lion Pulse Ox Last 24 Hr 98.1 F-98.6 F 61-67 18-20 112-127/62-72 99 GENERAL: The patient is awake, alert, and fully oriented, in no acute distress. HEAD: Normal with no signs of trauma. EYES: PERRL, extraocular movements intact, sclera anicteric, conjunctiva clear. No ptosis. ENT: Ears normal, nares patent, oropharynx clear without exudates, moist mucous membranes. NECK: Trachea midline, full range of motion, supple. LUNGS: Breath sounds equal, clear to auscultation bilaterally HEART: Regular rate and rhythm ABDOMEN: Soft, nontender, nondistended, normoactive bowel sounds EXTREMITIES: no edema. NEUROLOGICAL: Normal speech, gait not observed. PSYCH: Normal mood, normal affect. SKIN: Warm, dry, normal turgor, no rashes or lesions noted Active Medications Generic Name Dose Route Start Last Admin Trade Name Freq PRN Reason Stop Dose Admin Piperacillin Sod/Tazobactam 50 mls @ 100 mls/hr 07/31/19 18:00 08/01/19 10:56 Sod 3.375 gm/ Dextrose IVPB 100 mls/hr Q8H-IV GIA Administration Protocol Lactated Ringer's 1,000 mls @ 75 mls/hr 07/31/19 12:33 08/01/19 07:42 Lactated Ringers Solution IV 75 mls/hr ASDIR GIA Administration Ondansetron HCl 4 mg 07/31/19 13:01 Zofran Injection IVPUSH Q6H PRN NAUSEA Pantoprazole Sodium 40 mg 07/31/19 12:15 08/01/19 10:57 Protonix Iv IVPUSH 40 mg DAILY GIA Administration ASSESSMENT/PLAN: Problem List - Problems (1) Cholecystitis with cholelithiasis Assessment/Plan: no further abdominal pain, denies any nausea or vomiting. Plan per surgical note: no need for acute inpatient surgery at this time. patient agrees to outpatient follow up for outpatient cholecystectomy advance diet as tolerated Code(s): K80.10 - CALCULUS OF GALLBLADDER W CHRONIC CHOLECYST W/O OBSTRUCTION Qualifiers: Cholelithiasis location: gallbladder Cholecystitis acuity: acute Biliary obstruction: without biliary obstruction Qualified Code(s): K80.00 - Calculus of gallbladder with acute cholecystitis without obstruction (2) Epigastric abdominal pain Assessment/Plan: resolved hida negative Code(s): R10.13 - EPIGASTRIC PAIN (3) Prophylactic measure Assessment/Plan: ambuatory young patient, defer a/c Code(s): Z29.9 - ENCOUNTER FOR PROPHYLACTIC MEASURES, UNSPECIFIED Visit type - Emergency Visit Emergency Visit: Yes ED Registration Date: 07/30/19 Care time: The patient presented to the Emergency Department on the above date and was hospitalized for further evaluation of their emergent condition. - New Patient This patient is new to me today: Yes Date on this admission: 08/01/19 - Critical Care Critical Care patient: No - Discharge Referral Referred to [facility] No
[2019-08-01 13:09] LABS: BASO % 0.6 % (0-2.0); EOS % 1.3 % (0-4.5); HEMATOCRIT 34.4 % (32.4-45.2); HEMOGLOBIN 10.5 GM/dL (10.7-15.3); LYMPH % 28.6 % (8-40); MCHC 30.5 g/dl (32.0-36.0); MEAN PLT VOLUME 8.9 fl (7.5-11.1); MONO % 7.5 % (3.8-10.2); PLATELET COUNT 251 K/MM3 (134-434); RBC 4.78 M/mm3 (3.60-5.2); RDW 17.7 % (11.6-15.6); WHITE BLOOD COUNT 7.2 K/mm3 (4.0-10.0)
[2019-08-01 13:42] LABS: ALBUMIN 3.5 g/dl (3.4-5.0); BILIRUBIN,TOTAL 0.4 mg/dL (0.2-1); BLOOD UREA NITROGEN 7.6 mg/dL (7-18); CREATININE 0.7 mg/dL (0.55-1.3); POTASSIUM 3.8 mmol/L (3.5-5.1); TOT PROT 7.1 g/dl (6.4-8.2)
--- NOTE | 2019-08-01 13:45 | PN ---
Progress Note, Physician History of Present Illness: stable no new issues - Current Medication List Current Medications: Active Medications Piperacillin Sod/Tazobactam (Sod 3.375 gm/ Dextrose) 50 mls @ 100 mls/hr IVPB Q8H-IV GIA; Protocol Last Admin: 08/01/19 10:56 Dose: 100 mls/hr Ondansetron HCl (Zofran Injection) 4 mg IVPUSH Q6H PRN PRN Reason: NAUSEA Pantoprazole Sodium (Protonix Iv) 40 mg IVPUSH DAILY GIA Last Admin: 08/01/19 10:57 Dose: 40 mg - Objective Vital Signs: Vital Signs Temperature 98.2 F 08/01/19 09:50 Pulse Rate 66 08/01/19 09:50 Respiratory Rate 20 08/01/19 09:50 Blood Pressure 127/72 08/01/19 09:50 O2 Sat by Pulse Oximetry (%) 99 07/31/19 21:00 Constitutional: Yes: No Distress, Calm Cardiovascular: Yes: S1, S2 Respiratory: Yes: Regular, CTA Bilaterally Gastrointestinal: Yes: Normal Bowel Sounds, Soft Musculoskeletal: Yes: WNL Extremities: Yes: WNL Neurological: Yes: Alert, Oriented Psychiatric: Yes: Alert, Oriented Labs: CBC, BMP 08/01/19 12:32 08/01/19 12:32 INR, PTT INR 1.07 (0.83-1.09) 07/30/19 06:00 Assessment/Plan Problem List - Problems (1) Cholecystitis with cholelithiasis Code(s): K80.10 - CALCULUS OF GALLBLADDER W CHRONIC CHOLECYST W/O OBSTRUCTION Qualifiers: Cholelithiasis location: gallbladder Cholecystitis acuity: acute Biliary obstruction: without biliary obstruction Qualified Code(s): K80.00 - Calculus of gallbladder with acute cholecystitis without obstruction (2) Epigastric abdominal pain Code(s): R10.13 - EPIGASTRIC PAIN (3) Prophylactic measure Code(s): Z29.9 - ENCOUNTER FOR PROPHYLACTIC MEASURES, UNSPECIFIED plan continue current mgmt rt ureteral calculus noted
[2019-08-01 18:05] VITALS: BP 118/69; PULSE 66; TEMP 98.4
--- NOTE | 2019-08-02 07:25 | DS ---
Physical Exam: SUBJECTIVE: Patient seen and examined at the bedside. tolerated her regular/low cholesterol diet but also brought food from the outside, even thought advised not to. She agrees to outpatient follow up with surgery for elective gall bladder surgery she also has a urologist she follows for renal stones. OBJECTIVE: Patient is a 29 year old female with a past medical history of nephrolithiasis (passed on its own x 3 months ago) presented to ED for right flank pain after eating pizza. Pt reported nausea with multiple episodes of nonbloody, nonbilious emesis. She denied abdominal pain, diarrhea, constipation, fever, chills, dysuria, increased urinary frequency. Pt reported she was treated for a UTI x 1 week ago with resolution of symptoms. States the pain was similar to kidney stone in the past but not as intense. Patient has been kept NPO since admission, now reports no abdominal pain. no further nausea or vomiting. HIDA negative. started on low cholesterol diet and tolerated diet. she agrees to outpatient follow up with surgery for elective gall bladder surgery. Vital Signs Period Temp Pulse Resp BP Sys/Lion Pulse Ox Last 24 Hr 98.2 F-98.4 F 61-66 20-20 118-138/69-78 PHYSICAL EXAM GENERAL: The patient is awake, alert, and fully oriented, in no acute distress. HEAD: Normal with no signs of trauma. EYES: PERRL, extraocular movements intact, sclera anicteric, conjunctiva clear. No ptosis. ENT: Ears normal, nares patent, oropharynx clear without exudates, moist mucous membranes. NECK: Trachea midline, full range of motion, supple. LUNGS: Breath sounds equal, clear to auscultation bilaterally HEART: Regular rate and rhythm ABDOMEN: Soft, nontender, nondistended, normoactive bowel sounds EXTREMITIES: no edema. NEUROLOGICAL: Normal speech, gait not observed. PSYCH: Normal mood, normal affect. SKIN: Warm, dry, normal turgor, no rashes or lesions noted LABS Laboratory Results - last 24 hr 08/01/19 08/01/19 12:32 12:32 WBC 7.2 RBC 4.78 Hgb 10.5 L Hct 34.4 MCV 72.0 L MCH 22.0 L MCHC 30.5 L RDW 17.7 H Plt Count 251 D MPV 8.9 Absolute Neuts (auto) 4.5 Neutrophils % 62.0 Lymphocytes % 28.6 D Monocytes % 7.5 Eosinophils % 1.3 D Basophils % 0.6 Nucleated RBC % 0 Sodium 141 Potassium 3.8 Chloride 106 Carbon Dioxide 26 Anion Gap 9 BUN 7.6 Creatinine 0.7 Est GFR (CKD-EPI)AfAm 137.62 Est GFR (CKD-EPI)NonAf 118.74 Random Glucose 73 L Calcium 9.0 Total Bilirubin 0.4 AST 16 ALT 22 Alkaline Phosphatase 102 Total Protein 7.1 Albumin 3.5 HOSPITAL COURSE: Date of Admission:07/30/19 Date of Discharge: 08/01/19 Minutes to complete discharge: 60 Discharge Summary Problems reviewed: Yes Reason For Visit: CHOLELITHIASIS W/CHOLECYSTITIS Current Active Problems Cholecystitis with cholelithiasis (Acute) Emotional upset (Acute) Epigastric abdominal pain (Acute) Prophylactic measure (Acute) Condition: Stable - Instructions Referrals: Ijeoma Sagastume MD [Primary Care Provider] - Girish Apple [Staff Physician] - Problem List - Problems (1) Cholecystitis with cholelithiasis Assessment/Plan: no further abdominal pain, denies any nausea or vomiting. Plan per surgical note: no need for acute inpatient surgery at this time. patient agrees to outpatient follow up for outpatient cholecystectomy advance diet as tolerated Code(s): K80.10 - CALCULUS OF GALLBLADDER W CHRONIC CHOLECYST W/O OBSTRUCTION Qualifiers: Cholelithiasis location: gallbladder Cholecystitis acuity: acute Biliary obstruction: without biliary obstruction Qualified Code(s): K80.00 - Calculus of gallbladder with acute cholecystitis without obstruction (2) Epigastric abdominal pain Assessment/Plan: resolved hida negative Code(s): R10.13 - EPIGASTRIC PAIN (3) Prophylactic measure Assessment/Plan: ambuatory young patient, defer a/c Code(s): Z29.9 - ENCOUNTER FOR PROPHYLACTIC MEASURES, UNSPECIFIED This patient is new to me today: Yes Date on this admission: 08/02/19 Emergency Visit: Yes ED Registration Date: 07/30/19 Care time: The patient presented to the Emergency Department on the above date and was hospitalized for further evaluation of their emergent condition. Critical Care patient: No - Discharge Referral Referred to [facility] No
== END 2019-08-02 08:36 | disposition home or self-care (01) ==
LOC: JER 05:09 → JERBED 09:55 → J8W 16:50
PROVIDERS: ATTEND Nurse Practitioner Family
DX: K80.00 Calculus of gallbladder with acute cholecystitis without obstruction (principal); R10.9 Unspecified abdominal pain; D72.829 Elevated white blood cell count, unspecified; F43.20 Adjustment disorder, unspecified; N13.2 Hydronephrosis with renal and ureteral calculous obstruction
CPT/HCPCS: 36415; 74176-TC; 76705-TC; 78226-TC; 80053; 81003; 83690; 83735; 84100; 84703; 85025; 85610; 85730; 86850; 86900; 86901; 87086; 93005; 93010; 99283-25; A9537; J0131; J7030

== ENCOUNTER 2020-02-21 17:52 | Inpatient (IN) | payer OTHER ==
[2020-02-21 18:01] VITALS: BMI 33.9
[2020-02-21] MEDS ORDERED: SODIUM CHLORIDE 1,000 ML IV STA (18:03)
[2020-02-21] MEDS ORDERED: ONDANSETRON 4 MG/2 ML VIAL IVPUSH ONE (18:03)
--- NOTE | 2020-02-21 18:03 | PDOC ---
Rapid Medical Evaluation Time Seen by Provider: 02/21/20 17:59 Medical Evaluation: Allergies Allergy/AdvReac Type Severity Reaction Status Date / Time No Known Allergies Allergy Verified 02/21/20 17:57 02/21/20 18:00 CC: hx kidney stones, rt flank pain with nausea. was in hosp for this last week but left, now here for continual pain and eval exam: rt cva flank tenderness, vss Plan: urine , labs, ivf, zofran, Discharge Disposition - Diagnosis Rt flank pain - Referrals - Patient Instructions - Post Discharge Activity
--- NOTE | 2020-02-21 18:14 | PDOC ---
History of Present Illness - History of Present Illness Initial Comments: 02/21/20 18:11 30 y/o F with history of renal stones and gall stones with exacerbation of R flank pain admitted for renal stones, admitted, signed out AMA, not continued pain and nausea. <Imtiaz Bello - Last Filed: 02/21/20 22:20> <Mindi Camarena - Last Filed: 02/21/20 23:01> - General Stated Complaint: KIDNEY PAIN Time Seen by Provider: 02/21/20 17:59 Past History - Medical History Anemia: No Asthma: Yes Cancer: No Cardiac Disorders: No CVA: No COPD: No CHF: No Dementia: No Diabetes: No GI Disorders: No Disorders: No HTN: No Hypercholesterolemia: No Liver Disease: No Seizures: No Thyroid Disease: No - Surgical History Abdominal Surgery: No Appendectomy: No Cardiac Surgery: No Cholecystectomy: No Lung Surgery: No Neurologic Surgery: No Orthopedic Surgery: No - Immunization History Immunization Up to Date: Yes - Psycho-Social/Smoking History Smoking History: Never smoked Have you smoked in the past 12 months: No Information on smoking cessation initiated: No - Substance Abuse Hx (Audit-C & DAST Scrn) How often the patient has a drink containing alcohol: Never Score: In Men: 4 or > Positive; In Women: 3 or > Positive: 0 Screen Result (Pos requires Nsg. Audit-10AR): Negative In the last yr the pt used illegal drug/Rx for NonMed reason: No Score: Yes response is considered Positive: 0 Screen Result (Positive result requires Nsg. DAST-10): Negative <Imtiaz Bello - Last Filed: 02/21/20 22:20> <Mindi Camarena - Last Filed: 02/21/20 23:01> - Medical History Allergies/Adverse Reactions: Allergies Allergy/AdvReac Type Severity Reaction Status Date / Time No Known Allergies Allergy Verified 02/21/20 17:57 Home Medications: Ambulatory Orders NK [No Known Home Medication] 01/27/20 Review of Systems - Review of Systems ABD/GI: Yes: Nausea Musculoskeletal: Yes: Back Pain <Imtiaz Bello - Last Filed: 02/21/20 22:20> *Physical Exam - Vital Signs Last Vital Signs Temp Pulse Resp BP Pulse Ox 97.8 F 68 16 140/67 100 02/21/20 17:57 02/21/20 17:57 02/21/20 17:57 02/21/20 17:57 02/21/20 17:57 - Physical Exam General Appearance: Yes: Appropriately Dressed. No: Apparent Distress HEENT: positive: Symmetrical Neck: positive: Supple Respiratory/Chest: positive: Normal Breath Sounds. negative: Respiratory Distress Gastrointestinal/Abdominal: positive: Other Musculoskeletal: positive: CVA Tenderness (R). negative: CVA Tenderness (L) Integumentary: positive: Normal Color, Dry, Warm Neurologic: positive: liquid flavor compounder II-XII NML intact, Fully Oriented, Alert, Normal Mood/Affect <Imtiaz Bello - Last Filed: 02/21/20 22:20> - Vital Signs Last Vital Signs Temp Pulse Resp BP Pulse Ox 97.8 F 68 16 140/67 100 02/21/20 17:57 02/21/20 17:57 02/21/20 17:57 02/21/20 17:57 02/21/20 17:57 <Mindi Camarena - Last Filed: 02/21/20 23:01> ED Treatment Course - LABORATORY CBC & Chemistry Diagram: 02/21/20 18:10 02/21/20 18:10 <Imtiaz Bello - Last Filed: 02/21/20 22:20> - LABORATORY CBC & Chemistry Diagram: 02/21/20 18:10 02/21/20 18:10 - ADDITIONAL ORDERS Additional order review: Laboratory Results 02/21/20 02/21/20 18:10 18:10 Sodium 140 Potassium 3.7 Chloride 107 Carbon Dioxide 25 Anion Gap 8 BUN 8.8 Creatinine 1.0 Est GFR (CKD-EPI)AfAm 88.79 Est GFR (CKD-EPI)NonAf 76.61 Random Glucose 80 Calcium 9.2 Magnesium 1.9 Total Bilirubin 0.4 AST 14 L ALT 18 Alkaline Phosphatase 112 Total Protein 7.8 Albumin 3.7 Lipase 66 L Urine Color Yellow Urine Appearance Cloudy Urine pH 6.5 Ur Specific [place] 1.014 Urine Protein Negative Urine Glucose (UA) Negative Urine Ketones Negative Urine Blood Trace Urine Nitrite Negative Urine Bilirubin Negative Urine Urobilinogen 1.0 Ur Leukocyte Esterase 3+ H Urine WBC (Auto) 489 Urine RBC (Auto) 49.7 Urine Casts (Auto) 4 U Epithel Cells (Auto) 29 Urine Bacteria (Auto) 2294 Urine HCG, Qual Negative 02/21/20 18:10 RBC 4.90 MCV 69.9 L MCHC 30.5 L RDW 18.8 H MPV 8.8 D Neutrophils % 71.8 Lymphocytes % 19.6 D Monocytes % 7.4 Eosinophils % 0.7 Basophils % 0.5 - Medications Given in the ED: ED Medications Discontinued Medications Generic Name Dose Route Start Last Admin Trade Name Gabriel PRN Reason Stop Dose Admin Sodium Chloride 1,000 mls @ 1,000 mls/hr 02/21/20 18:03 02/21/20 18:26 Normal Saline - IV 02/21/20 19:02 1,000 mls/hr ASDIR STA Administration Ondansetron HCl 4 mg 02/21/20 18:03 02/21/20 18:26 Zofran Injection IVPUSH 02/21/20 18:04 4 mg ONCE ONE Administration <Mindi Camarena - Last Filed: 02/21/20 23:01> Medical Decision Making - Medical Decision Making 02/21/20 21:42 Hospitalist called for admission patient in agreement with the plan. <Imtiaz Bello - Last Filed: 02/21/20 22:20> - Medical Decision Making 02/21/20 23:00 patient signed out to medical lab technician. previous urologist Dr. manny morales. medical lab technician will consult inpatient <Mindi Camarena - Last Filed: 02/21/20 23:01> Discharge - Discharge Information Problems reviewed: Yes - Admission Yes <Imtiaz Bello - Last Filed: 02/21/20 22:20> <Mindi Camarena - Last Filed: 02/21/20 23:01> - Discharge Information Clinical Impression/Diagnosis: Rt flank pain, Ureterolithiasis, UTI (urinary tract infection)
[2020-02-21 18:47] LABS: BASO % 0.5 % (0-2.0); EOS % 0.7 % (0-4.5); HEMATOCRIT 34.2 % (32.4-45.2); HEMOGLOBIN 10.4 GM/dL (10.7-15.3); LYMPH % 19.6 % (8-40); MCH 21.3 pg (25.7-33.7); MCHC 30.5 g/dl (32.0-36.0); MEAN CELL VOLUME 69.9 fl (80-96); MEAN PLT VOLUME 8.8 fl (7.5-11.1); MONO % 7.4 % (3.8-10.2); NEUT % 71.8 % (42.8-82.8); PLATELET COUNT 307 K/MM3 (134-434); RDW 18.8 % (11.6-15.6); WHITE BLOOD COUNT 9.5 K/mm3 (4.0-10.0)
[2020-02-21 19:13] LABS: EPI CELLS 29 /uL (0-25.1); HYALINE CASTS 4 /uL (0-3.1); PH,URINE 6.5 (5.0-8.0); URINE APPEARANCE CLOUDY; URINE BACTERIA 2294 /uL (0-1359); URINE BILIRUBIN NEGATIVE (NEGATIVE); URINE COLOR YELLOW; URINE GLUCOSE (UA) NEGATIVE (NEGATIVE); URINE KETONE NEGATIVE (NEGATIVE); URINE LEUK ESTERASE 3+ (NEGATIVE); URINE NITRITE NEGATIVE (NEGATIVE); URINE PROTEIN NEGATIVE (NEGATIVE); URINE WBC 489 /uL (0-25.8)
[2020-02-21 19:23] LABS: HCG,QUALITATIVE URINE Negative
[2020-02-21 19:33] LABS: ALBUMIN 3.7 g/dl (3.4-5.0); BILIRUBIN,TOTAL 0.4 mg/dL (0.2-1); BLOOD UREA NITROGEN 8.8 mg/dL (7-18); CALCIUM 9.2 mg/dL (8.5-10.1); MAGNESIUM 1.9 mg/dL (1.8-2.4); POTASSIUM 3.7 mmol/L (3.5-5.1); TOT PROT 7.8 g/dl (6.4-8.2)
[2020-02-21 19:35] LABS: URINE RBC 49.7 /uL (0-23.9)
[2020-02-21 19:37] LABS: ANISOCYTOSIS 1+; PLATELET ESTIMATE ADEQUATE
--- NOTE | 2020-02-21 19:40 | PDOC ---
*Physical Exam - Vital Signs Last Vital Signs Temp Pulse Resp BP Pulse Ox 97.8 F 68 16 140/67 100 02/21/20 17:57 02/21/20 17:57 02/21/20 17:57 02/21/20 17:57 02/21/20 17:57 ED Treatment Course - LABORATORY CBC & Chemistry Diagram: 02/21/20 18:10 02/21/20 18:10 - ADDITIONAL ORDERS Additional order review: Laboratory Results 02/21/20 02/21/20 18:10 18:10 Sodium 140 Potassium 3.7 Chloride 107 Carbon Dioxide 25 Anion Gap 8 BUN 8.8 Creatinine 1.0 Est GFR (CKD-EPI)AfAm 88.79 Est GFR (CKD-EPI)NonAf 76.61 Random Glucose 80 Calcium 9.2 Magnesium 1.9 Total Bilirubin 0.4 AST 14 L ALT 18 Alkaline Phosphatase 112 Total Protein 7.8 Albumin 3.7 Lipase 66 L Urine Color Yellow Urine Appearance Cloudy Urine pH 6.5 Ur Specific [place] 1.014 Urine Protein Negative Urine Glucose (UA) Negative Urine Ketones Negative Urine Blood Trace Urine Nitrite Negative Urine Bilirubin Negative Urine Urobilinogen 1.0 Ur Leukocyte Esterase 3+ H Urine WBC (Auto) 489 Urine RBC (Auto) 49.7 Urine Casts (Auto) 4 U Epithel Cells (Auto) 29 Urine Bacteria (Auto) 2294 Urine HCG, Qual Negative 02/21/20 18:10 RBC 4.90 MCV 69.9 L MCHC 30.5 L RDW 18.8 H MPV 8.8 D Neutrophils % 71.8 Lymphocytes % 19.6 D Monocytes % 7.4 Eosinophils % 0.7 Basophils % 0.5 - Medications Given in the ED: ED Medications Discontinued Medications Generic Name Dose Route Start Last Admin Trade Name Freq PRN Reason Stop Dose Admin Sodium Chloride 1,000 mls @ 1,000 mls/hr 02/21/20 18:03 02/21/20 18:26 Normal Saline - IV 02/21/20 19:02 1,000 mls/hr ASDIR STA Administration Ondansetron HCl 4 mg 02/21/20 18:03 02/21/20 18:26 Zofran Injection IVPUSH 02/21/20 18:04 4 mg ONCE ONE Administration Medical Decision Making - Medical Decision Making 02/21/20 19:39 Patient seen by the advanced practice provider under my supervision. Ancillary testing reviewed as necessary. I agree with plan as outlined by the advanced practice provider. Discharge - Discharge Information Problems reviewed: Yes Clinical Impression/Diagnosis: Rt flank pain, Ureterolithiasis, UTI (urinary tract infection) - Follow up/Referral Referrals: Ijeoma Sagastume MD [Primary Care Provider] - - Patient Discharge Instructions - Post Discharge Activity
[2020-02-21] MEDS ORDERED: CEFTRIAXONE 1 GM in DEXTROSE 5%-WATER - 100 ML IVPB ONE (20:18)
[2020-02-21] MEDS ORDERED: CEFTRIAXONE 1 GM/50 ML BAG ONE (23:04)
[2020-02-21 23:13] VITALS: BP 134/69; PULSE 78; TEMP 98.1
[2020-02-21] MEDS ORDERED: SODIUM CHLORIDE 1,000 ML IV SCH (23:45)
--- NOTE | 2020-02-21 23:58 | HP ---
CHIEF COMPLAINT: I have nausea PCP: Dr. Ijeoma Sagastume HISTORY OF PRESENT ILLNESS: Evonne Young is a 30 Y F with PMH of Nephrolithiasis and Cholelithiasis w/cholecystitis presents today to the ED with Right flank pain and R sided abdominal pain 6days. The pain began at rest, sudden onset, constant in nature and sharp in quality, 5/10 in intensity, radiating to the back, no aggravating or alleviating factors. pain is also associated with Nausea and vomiting without any fever, chills, dysuria or hematuria. She reports that she was here last week for the same complaints but decided to leave AMA, because she did not feel like staying. She reports multiple previous episodes of renal stones, which she was able to pass spontaneously. Patient reports LMP was last wek with increased ramps and some heavy bleeding. Previous negative STI pannel in October, and reports that she is not currently sexually active. Last admission: 07/30/19-08/01/19 she presented with right flank pain after eating pizza. CT scan revealed 4mm right uretral calculi withmild hydro. BL nephrolithlias , no obstruction. ABD u/s revealed slightly thickened gallbladder with multiple calculi. she was evaluated by surgery during her hospital course and surg recommended - no acute inpatient surgery and the patient agreed to outpatient follow up with surgery for elective cholecystectomy. ED course: patient was given NS, Zonfran 4mg, and Ceftriaxone 1gm. Patient report no changes in her nausea and reports moderate pain at rest. ABD/Pelv CT was significant for 4.5 x 4 m obstructing stone in proximal R.ureter w/mild-mod R.renal hydronephrosis and proximal hydroureter. Urology was consulted and will evaluate patient in AM. ER course was notable for: (1) +3 Leuk est (2) CT Imaging findings of obstructing stone with hydronephrosis (3) Recent Travel: PAST MEDICAL HISTORY: PAST SURGICAL HISTORY: Social History: Smoking: Alcohol: Drugs: Allergies No Known Allergies Allergy (Verified 02/21/20 17:57) HOME MEDICATIONS: Home Medications Medication Instructions Recorded NK [No Known Home Medication] 01/27/20 REVIEW OF SYSTEMS CONSTITUTIONAL: Present: loss of appetite, Nausea, vomiting Absent: fever, chills, diaphoresis, generalized weakness, malaise, HEENT: Absent: rhinorrhea, nasal congestion, throat pain, difficulty swallowing CARDIOVASCULAR: Absent: chest pain, syncope, palpitations, irregular heart rate, lightheadedness, peripheral edema RESPIRATORY: Absent: cough, shortness of breath, dyspnea with exertion, orthopnea, wheezing GASTROINTESTINAL: Present: Right sided abdominal pain Absent: abdominal distension, nausea, vomiting, diarrhea, constipation GENITOURINARY: Present: flank pain Absent: dysuria, frequency, urgency, hesitancy, hematuria MUSCULOSKELETAL: Absent: myalgia, arthralgia, joint swelling, back pain, neck pain SKIN: Absent: rash, itching, pallor NEUROLOGIC: Absent: headache, focal weakness or paresthesias, dizziness, unsteady gait, bladder or bowel incontinence PHYSICAL EXAMINATION Vital Signs - 24 hr 02/21/20 02/21/20 17:57 23:13 Temperature 97.8 F 98.1 F Pulse Rate 68 Pulse Rate [ 78 Apical] Respiratory 16 20 Rate Blood Pressure 140/67 Blood Pressure 134/69 [Right Arm] O2 Sat by Pulse 100 100 Oximetry (%) GENERAL: Awake, alert, and fully oriented, in no acute distress. HEAD: Normal with no signs of trauma. EYES: Pupils equal, round and reactive to light, extraocular movements intact, sclera anicteric, conjunctiva clear. EARS, NOSE, THROAT: Ears normal, nares patent, oropharynx clear without exudates. Moist mucous membranes. NECK: Normal range of motion, supple without lymphadenopathy, JVD, or masses. LUNGS: Breath sounds equal, clear to auscultation bilaterally. No wheezes, and no crackles. No accessory muscle use. HEART: Regular rate and rhythm, normal S1 and S2 without murmur, rub or gallop. ABDOMEN: Soft, Epigastric tenderness, Ruq tenderness and RLQ tenderness to palpation, not distended, normoactive bowel sounds, no guarding, no rebound, no masses. MUSCULOSKELETAL: Normal range of motion at all joints. No bony deformities or tenderness. CVA tenderness on Right side. UPPER EXTREMITIES: 2+ pulses, warm, well-perfused. No cyanosis. No clubbing. No peripheral edema. LOWER EXTREMITIES: 2+ pulses, warm, well-perfused. No calf tenderness. No peripheral edema. Laboratory Results - last 24 hr 02/21/20 02/21/20 02/21/20 18:10 18:10 18:10 WBC 9.5 RBC 4.90 Hgb 10.4 L Hct 34.2 MCV 69.9 L MCH 21.3 L MCHC 30.5 L RDW 18.8 H Plt Count 307 D MPV 8.8 D Absolute Neuts (auto) 6.8 Neutrophils % 71.8 Lymphocytes % 19.6 D Monocytes % 7.4 Eosinophils % 0.7 Basophils % 0.5 Nucleated RBC % 0 Hypochromia 1+ Platelet Estimate Adequate Anisocytosis 1+ Sodium 140 Potassium 3.7 Chloride 107 Carbon Dioxide 25 Anion Gap 8 BUN 8.8 Creatinine 1.0 Est GFR (CKD-EPI)AfAm 88.79 Est GFR (CKD-EPI)NonAf 76.61 Random Glucose 80 Calcium 9.2 Magnesium 1.9 Total Bilirubin 0.4 AST 14 L ALT 18 Alkaline Phosphatase 112 Total Protein 7.8 Albumin 3.7 Lipase 66 L Urine Color Yellow Urine Appearance Cloudy Urine pH 6.5 Ur Specific [place] 1.014 Urine Protein Negative Urine Glucose (UA) Negative Urine Ketones Negative Urine Blood Trace Urine Nitrite Negative Urine Bilirubin Negative Urine Urobilinogen 1.0 Ur Leukocyte Esterase 3+ H Urine WBC (Auto) 489 Urine RBC (Auto) 49.7 Urine Casts (Auto) 4 U Epithel Cells (Auto) 29 Urine Bacteria (Auto) 2294 Urine HCG, Qual Negative ASSESSMENT/PLAN: 30 y F PMH of Nephrolithiasis and Cholelithiasis w/cholecystitis presents with Right flank pain and R sided abdominal pain 6days. ABD/Pelv CT was significant for 4.5 x 4 m obstructing stone in proximal R.ureter w/mild-mod R.renal hydronephrosis and proximal hydroureter. Admitted for management of nephrolithiasis. #Nephrolithiasis - CT was significant for 4.5x4m obstructing stone in R. ureter + r. renal hydropnephrosis - No evidence of sepsis, stone <10mm, no indication for urgent ESWL/nephrolit hotomy, will facilitate stone passage and consult urology - Started on Tamsulosin 0.4mg daily - No concrete evidence of IVF in nephrolithiasis, however due nausea/vomiting and anorexia for 6D will start N/S @ 83 - In ED, patient recieved Ketorolac 30mg, will continue ketorolac 15mg Q6H for mild-mod pain. - Urology consult placed (Outpatient Dr. Haji) - Will F/U with EKG and start patient on Zofran, if no Prolongation of QTc is seen on EKG #UTI - 2/2 to renal stone - Leuk Est +3 on UA, however denies any Dysuria - In ED patient recieved 1mg of ceftriaxone - Will continue Ceftriaxone 1mg QD #Anemia - H/H 10.4/34.2 with decreased MCV 69.9 and increased RDW 18.8 - Most likely 2/2 Iron deficiency - will f/u with Iron studies and supplement with Iron if needed #FEN - N/S @ 83 - NPO for possible procedure in AM #Prophylaxis - SCDs, holding chemical AC for possible procedure in AM #Dispo - Will monitor in M/S and F/U with urology recs for procedural intervention vs passive stone facilitation Visit type - Emergency Visit Emergency Visit: Yes ED Registration Date: 02/21/20 Care time: The patient presented to the Emergency Department on the above date and was hospitalized for further evaluation of their emergent condition. - New Patient This patient is new to me today: Yes Date on this admission: 02/22/20 - Critical Care Critical Care patient: No ATTENDING PHYSICIAN STATEMENT I saw and evaluated the patient. I reviewed the resident's note and discussed the case with the resident. I agree with the resident's findings and plan as documented. SUBJECTIVE: OBJECTIVE: ASSESSMENT AND PLAN:
[2020-02-22] MEDS ORDERED: TAMSULOSIN HCL 0.4 MG CAP PO ONE
[2020-02-22] MEDS ORDERED: KETOROLAC TROMETHAMINE 15 MG/ML VIAL IVPUSH PRN (00:03)
[2020-02-22] MEDS ORDERED: TAMSULOSIN HCL 0.4 MG CAP ONE (00:12)
[2020-02-22] MEDS ORDERED: KETOROLAC TROMETHAMINE 15 MG/ML VIAL ONE (00:12)
--- NOTE | 2020-02-22 01:32 | DS ---
Physical Exam: SUBJECTIVE: Patient seen and examined. OBJECTIVE: Vital Signs Period Temp Pulse Resp BP Sys/Lion Pulse Ox Last 24 Hr 97.8 F-98.1 F 68-78 16-20 134-140/67-69 100-100 PHYSICAL EXAM GENERAL: Awake, alert, and fully oriented, in no acute distress. HEAD: Normal with no signs of trauma. EYES: Pupils equal, round and reactive to light, extraocular movements intact, sclera anicteric, conjunctiva clear. EARS, NOSE, THROAT: Ears normal, nares patent, oropharynx clear without ex udates. Moist mucous membranes. NECK: Normal range of motion, supple without lymphadenopathy, JVD, or masses. LUNGS: Breath sounds equal, clear to auscultation bilaterally. No wheezes, and no crackles. No accessory muscle use. HEART: Regular rate and rhythm, normal S1 and S2 without murmur, rub or gallop. ABDOMEN: Soft, Epigastric tenderness, Ruq tenderness and RLQ tenderness to palpa tion, not distended, normoactive bowel sounds, no guarding, no rebound, no masses. MUSCULOSKELETAL: Normal range of motion at all joints. No bony deformities or tenderness. CVA tenderness on Right side. UPPER EXTREMITIES: 2+ pulses, warm, well-perfused. No cyanosis. No clubbing. No peripheral edema. LOWER EXTREMITIES: 2+ pulses, warm, well-perfused. No calf tenderness. No peripheral edema. LABS Laboratory Results - last 24 hr 02/21/20 02/21/20 02/21/20 18:10 18:10 18:10 WBC 9.5 RBC 4.90 Hgb 10.4 L Hct 34.2 MCV 69.9 L MCH 21.3 L MCHC 30.5 L RDW 18.8 H Plt Count 307 D MPV 8.8 D Absolute Neuts (auto) 6.8 Neutrophils % 71.8 Lymphocytes % 19.6 D Monocytes % 7.4 Eosinophils % 0.7 Basophils % 0.5 Nucleated RBC % 0 Hypochromia 1+ Platelet Estimate Adequate Anisocytosis 1+ Sodium 140 Potassium 3.7 Chloride 107 Carbon Dioxide 25 Anion Gap 8 BUN 8.8 Creatinine 1.0 Est GFR (CKD-EPI)AfAm 88.79 Est GFR (CKD-EPI)NonAf 76.61 Random Glucose 80 Calcium 9.2 Magnesium 1.9 Total Bilirubin 0.4 AST 14 L ALT 18 Alkaline Phosphatase 112 Total Protein 7.8 Albumin 3.7 Lipase 66 L Urine Color Yellow Urine Appearance Cloudy Urine pH 6.5 Ur Specific [place] 1.014 Urine Protein Negative Urine Glucose (UA) Negative Urine Ketones Negative Urine Blood Trace Urine Nitrite Negative Urine Bilirubin Negative Urine Urobilinogen 1.0 Ur Leukocyte Esterase 3+ H Urine WBC (Auto) 489 Urine RBC (Auto) 49.7 Urine Casts (Auto) 4 U Epithel Cells (Auto) 29 Urine Bacteria (Auto) 2294 Urine HCG, Qual Negative HOSPITAL COURSE: Evonne Young is a 30 Y F with PMH of Nephrolithiasis and Cholelithiasis w/cholecystitis presents today to the ED with Right flank pain and R sided abdominal pain 6days. The pain began at rest, sudden onset, constant in nature and sharp in quality, 5/10 in intensity, radiating to the back, no aggravating or alleviating factors. pain is also associated with Nausea and vomiting without any fever, chills, dysuria or hematuria. She reports that she was here last week for the same complaints but decided to leave AMA, because she did not feel like staying. She reports multiple previous episodes of renal stones, which she was able to pass spontaneously. Patient reports LMP was last wek with increased ra mps and some heavy bleeding. Previous negative STI pannel in October, and reports that she is not currently sexually active. ED course: patient was given NS, Zonfran 4mg, and Ceftriaxone 1gm. Patient r eport no changes in her nausea and reports moderate pain at rest. ABD/Pelv CT was significant for 4.5 x 4 m obstructing stone in proximal R.ureter w/mild-mod R.renal hydronephrosis and proximal hydroureter. Urology was consulted and will evaluate patient in AM. Patient was given Ketorolac 15mg, NS @83, Tamsulosin 0.4mg. Patient did not want to recieve a covid testing. She wanted to leave AMA. Patient was explained of possible risk/complications of leaving AMA, including worsening of her pain, Nausea, vomiting and anorexia; complications of worsening obstruction leading to worsening hydronephrosis and declining kidney functions, complications of infections and possibly . Patient was advised to follow up with her Urology appointment with Dr. Haji tomorrow morning and to follow up with her PCP within 1 week for further workup of anemia. Date of Admission:02/21/20 Date of Discharge: 02/22/20 Minutes to complete discharge: 15 Discharge Summary Problems reviewed: Yes Reason For Visit: UTI,CALCULUS OF URETER Current Active Problems Rt flank pain (Acute) UTI (urinary tract infection) (Acute) Ureterolithiasis (Acute) - Instructions Diet, Activity, Other Instructions: You presented to the ER with abdominal pain and discomfort. A CT scan was performed, which showed a stone in your right ureter causing an obstruction. You were also found to have a calcification on your bladder, which will require further investigation by urology. You were treated with fluids, antibiotics, and medicine to help you urinate. You were scheduled to have a Urology consultation in the morning, however you have decided to leave against medical advice, risks of doing so include worsening obstruction in your kidneys, infection, and pain. You were also found to have anemia (low hemoglobin levels in the blood), which may have been caused by iron deficiency. Please see your PCP for further workup. Please follow up with your Urology appointment with Dr. Haji tomorrow morning Please follow up with your PCP within 1 week for further workup of anemia. Referrals: Ijeoma Sagastume MD [Primary Care Provider] - Gilson Haji MD [Staff Physician] - Disposition: AGAINST MEDICAL ADVICE - Home Medications Comprehensive Discharge Medication List: Ambulatory Orders NK [No Known Home Medication] 01/27/20 This patient is new to me today: Yes Date on this admission: 02/22/20 Emergency Visit: Yes ED Registration Date: 02/21/20 Care time: The patient presented to the Emergency Department on the above date and was hospitalized for further evaluation of their emergent condition. Critical Care patient: No - Discharge Referral Referred to [facility] No ATTENDING PHYSICIAN STATEMENT I saw and evaluated the patient. I reviewed the resident's note and discussed the case with the resident. I agree with the resident's findings and plan as documented. SUBJECTIVE: OBJECTIVE: ASSESSMENT AND PLAN:
[2020-02-22] MEDS ORDERED: TAMSULOSIN HCL 0.4 MG CAP PO SCH (08:30)
--- NOTE | 2020-02-22 09:31 | EKG ---
Test Reason : Blood Pressure : / mmHG Vent. Rate : 065 BPM Atrial Rate : 065 BPM P-R Int : 144 ms QRS Dur : 092 ms QT Int : 430 ms P-R-T Axes : 037 014 018 degrees QTc Int : 447 ms NORMAL SINUS RHYTHM NORMAL ECG WHEN COMPARED WITH ECG OF 31-JUL-2019 15:45, NO SIGNIFICANT CHANGE WAS FOUND Confirmed by MD ZARATE MOYSES ([id number]) on 02/22/2020 9:31:29 AM Referred By: Confirmed By:SEJAL ZARATE MD
[2020-02-22] MEDS ORDERED: CEFTRIAXONE 1 GM in DEXTROSE 5%-WATER - 50 ML IVPB SCH (10:00)
== END 2020-02-22 01:19 | disposition left against medical advice (07) | DRG 465 ==
LOC: JER 17:52 → JERBED 22:20
PROVIDERS: ADMIT Internal Medicine; ATTEND Internal Medicine
DX: N13.2 Hydronephrosis with renal and ureteral calculous obstruction (principal); N39.0 Urinary tract infection, site not specified; D50.9 Iron deficiency anemia, unspecified; R10.9 Unspecified abdominal pain
CPT/HCPCS: 36415; 74176-TC; 80053; 81003; 83690; 83735; 84703; 85025; 87086; 93005; 93010; 99285-25

== ENCOUNTER 2020-02-23 18:38 | Inpatient (IN) | payer OTHER ==
--- NOTE | 2020-02-23 18:47 | PDOC ---
Rapid Medical Evaluation Time Seen by Provider: 02/23/20 18:44 Medical Evaluation: Allergies Allergy/AdvReac Type Severity Reaction Status Date / Time No Known Allergies Allergy Verified 02/21/20 17:57 02/23/20 18:45 I have performed a brief in-person evaluation of this patient. CC: "I have a kidney stone." PE: Right CVAT. Admitted for UTI, obstructive uropathy 02/20. Orders: urine, labs, toradol Patient will proceed to ED for further evaluation. 02/23/20 18:46 Discharge Disposition - Diagnosis Ureterolithiasis - Referrals - Patient Instructions - Post Discharge Activity
[2020-02-23] MEDS ORDERED: KETOROLAC TROMETHAMINE 30 MG/1 ML VIAL IVPUSH ONE (18:48)
[2020-02-23] MEDS ORDERED: FAMOTIDINE 20 MG/50 ML IVPB 20 MG/50 ML MG IVPB ONE ×2 (19:30→19:56)
[2020-02-23] MEDS ORDERED: SODIUM CHLORIDE 0.9% 500 ML INFUS.BAG IV ONE (19:30)
[2020-02-23] MEDS ORDERED: ONDANSETRON 4 MG/2 ML VIAL IVPUSH ONE (19:30)
[2020-02-23] MEDS ORDERED: KETOROLAC TROMETHAMINE 30 MG/1 ML VIAL ONE (19:33)
[2020-02-23 19:43] LABS: EPI CELLS >36 /uL (0-25.1); HYALINE CASTS 1 /uL (0-3.1); URINE APPEARANCE Clear; URINE BACTERIA 1547 /uL (0-1359); URINE BILIRUBIN Negative (NEGATIVE); URINE COLOR Yellow; URINE GLUCOSE (UA) Negative (NEGATIVE); URINE KETONE Trace (NEGATIVE); URINE LEUK ESTERASE Moderate (NEGATIVE); URINE NITRITE Negative (NEGATIVE); URINE PROTEIN Negative (NEGATIVE); URINE UROBILINOGEN 0.2 mg/dL (0.2-1.0); URINE WBC 98 /uL (0-25.8)
[2020-02-23 19:44] LABS: URINE RBC 21.9 /uL (0-23.9)
--- NOTE | 2020-02-23 19:48 | PDOC ---
History of Present Illness - General Chief Complaint: Pain Stated Complaint: KIDNEY STONES Time Seen by Provider: 02/23/20 18:44 History Source: Patient Exam Limitations: No Limitations - History of Present Illness Initial Comments: 02/23/20 19:42 30F c/o acute worsening of right flank pain today. Associated n/ nbnb v. Pt was seen here on 02/21/20 w/ right obstructing renal stone on CT, pt AMA'd and dc'd on abx but unable to tolerate. Saw Dr. Haji and scheduled for procedure at [facility] on Thursday. Denies f/c. NKDA. Covid swabbed at [facility] today. Past History - Medical History Allergies/Adverse Reactions: Allergies Allergy/AdvReac Type Severity Reaction Status Date / Time No Known Allergies Allergy Verified 02/23/20 18:54 Home Medications: Ambulatory Orders NK [No Known Home Medication] 01/27/20 Anemia: No Asthma: No Cancer: No Cardiac Disorders: No CVA: No COPD: No CHF: No Dementia: No Diabetes: No GI Disorders: No Disorders: No HTN: No Hypercholesterolemia: No Kidney Stones: Yes Liver Disease: No Seizures: No Thyroid Disease: No - Surgical History Abdominal Surgery: No Appendectomy: No Cardiac Surgery: No Cholecystectomy: No Lung Surgery: No Neurologic Surgery: No Orthopedic Surgery: No - Immunization History Immunization Up to Date: Yes - Psycho-Social/Smoking History Smoking History: Never smoked Have you smoked in the past 12 months: No Information on smoking cessation initiated: No - Substance Abuse Hx (Audit-C & DAST Scrn) How often the patient has a drink containing alcohol: Never Score: In Men: 4 or > Positive; In Women: 3 or > Positive: 0 Screen Result (Pos requires Nsg. Audit-10AR): Negative In the last yr the pt used illegal drug/Rx for NonMed reason: No Score: Yes response is considered Positive: 0 Screen Result (Positive result requires Nsg. DAST-10): Negative Review of Systems - Review of Systems Comments:: 02/24/20 05:31 CONSTITUTIONAL: Denies F / C HEENT: Denies sore throat, rhinorrhea RESP: Denies SOB CARD: Denies chest pain GI: +n/v, right flank pain : Denies dysuria, hematuria NEURO: Denies numbness, tingling, weakness MSK: right CVA pain SKIN: Denies rashes *Physical Exam - Vital Signs Last Vital Signs Temp Pulse Resp BP Pulse Ox 98.0 F 74 18 138/64 100 02/23/20 18:50 02/23/20 18:50 02/23/20 18:50 02/23/20 18:50 02/23/20 18:50 - Physical Exam 02/24/20 05:31 GEN: restless 2/2 pain. AAOx3. HEENT: NC/AT, EOMI, PERRL. No facial asymmetry. Moist mucous membranes. Normal voice. Supple neck w/ FROM. CV: S1/S2, RRR, no m/r/g LUNG: CTAB, no wheezes, crackles, rales, rhonchi. GI: +RCVAT, belly soft ndnt. +BS. no rebound. MSK: left ankle is bekah wrapped SKIN: Warm, dry, no rashes appreciated. PSYCH: cooperative but agitated, coherent and fluent. NEURO: Moving all extremities well. ambulates w/ normal gait. ED Treatment Course - LABORATORY CBC & Chemistry Diagram: 02/23/20 19:45 02/23/20 19:45 Medical Decision Making - Medical Decision Making 02/24/20 05:31 30F c/o acute worsening of right flank pain today; h/o obstructing stone on CT 02/21/20. +N/V. No F/C. RCVAT. Likely renal stone exacerbation - CBC, CMP - UA - Toradol - Fluids - Zofran - admit 02/23/20 20:10 EKG 20:04 NSR intervals and axis; QTc 418 CTX Will not covid swab 02/23/20 22:09 pt was reassessed and experiencing significant symptomatic relief appears much more comfortable; no longer writhing in pain PO tolerant 02/23/20 23:52 endorsed / admitted Discharge - Discharge Information Problems reviewed: Yes Clinical Impression/Diagnosis: Ureterolithiasis, UTI (urinary tract infection), Rt flank pain, Abdominal discomfort Condition: Guarded - Admission Yes - Follow up/Referral - Patient Discharge Instructions - Post Discharge Activity
[2020-02-23 20:15] LABS: BASO % 0.3 % (0-2.0); EOS % 0.2 % (0-4.5); HEMATOCRIT 33.4 % (32.4-45.2); HEMOGLOBIN 10.2 GM/dL (10.7-15.3); LYMPH % 10.8 % (8-40); MCH 21.2 pg (25.7-33.7); MCHC 30.6 g/dl (32.0-36.0); MEAN CELL VOLUME 69.4 fl (80-96); MEAN PLT VOLUME 9.4 fl (7.5-11.1); MONO % 5.4 % (3.8-10.2); NEUT % 83.3 % (42.8-82.8); PLATELET COUNT 324 K/MM3 (134-434); RBC 4.81 M/mm3 (3.60-5.2); RDW 18.7 % (11.6-15.6)
[2020-02-23] MEDS ORDERED: METOCLOPRAMIDE HCL INJECTION 10 MG/2 ML VIAL IVPUSH ONE (20:19)
[2020-02-23] MEDS ORDERED: METOCLOPRAMIDE HCL INJECTION 10 MG/2 ML VIAL ONE (20:26)
--- NOTE | 2020-02-23 20:40 | PDOC ---
Documentation entered by Carmen Schuler SCRIBE, acting as scribe for Judith Fabian DO. Judith Fabian DO: This documentation has been prepared by the asadibe, Carmen Schuler SCRIBE, under my direction and personally reviewed by me in its entirety. I confirm that the documentation accurately reflects all work, treatment, procedures, and medical decision making performed by me. Attending Attestation - Resident Resident Name: DamonGreg - ED Attending Attestation I have performed the following: I have examined & evaluated the patient, The case was reviewed & discussed with the resident, I agree w/resident's findings & plan, Exceptions are as noted - HPI HPI: 02/23/20 19:27 Patient is a 30 year old female with a significant past medical history of asthma and nephrolithiasis who presents to the ED with right flank pain since earlier today. Patient stated that the pain has been worsening alonng with nausea and vomiting. Patient was seen 2 days ago for a renal stone, and has a procedure scheduled for Thursday at [facility]. Patient denies: fever and chills. Allergies: NKDA PCP: Dr. Ijeoma Sagastume - Physicial Exam PE: 02/23/20 20:34 Gen: aaox3, uncomfortable heart: +s1s2 reg lungs: cta b/l abd: soft, epigastric ttp, R cva ttp ext: no c/c/e 02/23/20 20:36 - Medical Decision Making 02/23/20 20:36 a/p: 30yo female with known R obstructing renal stone with worsening pain and persistent n/v -pt ama from R on 09/23 -pt given iv rocephin at that time -pain x 1 week -will send labs, repeat ua, ucx -upreg neg 2 days ago -will need admission -plan with Dr. Chung for sx on Thursday, will discuss with Dr. Juliet viveros after labs resulted -will monitor, pain control, nausea control -will reassess 02/23/20 20:40 pt underwent covid testing today at [facility] 02/23/20 22:[address] Chung pending call back microblog sent to [facility] for admission 02/23/20 23:58 resident discussed the case with [facility] who accepts pt to service Heart Score/ECG Review - ECG Intrepretation Comment:: 02/23/20 20:38 sinus at 60, nl axis, nl interval, t wave inversions III which are nonspecific Discharge - Discharge Information Problems reviewed: Yes Clinical Impression/Diagnosis: Ureterolithiasis, UTI (urinary tract infection), Rt flank pain, Abdominal discomfort Condition: Guarded - Admission Yes - Follow up/Referral Referrals: Ijeoma Sagastume MD [Primary Care Provider] - - Patient Discharge Instructions - Post Discharge Activity
[2020-02-23 20:44] LABS: ALBUMIN 3.9 g/dl (3.4-5.0); BILIRUBIN,TOTAL 0.3 mg/dL (0.2-1); BLOOD UREA NITROGEN 9.9 mg/dL (7-18); CALCIUM 9.4 mg/dL (8.5-10.1); CREATININE 1.1 mg/dL (0.55-1.3); POTASSIUM 3.9 mmol/L (3.5-5.1); TOT PROT 7.9 g/dl (6.4-8.2)
[2020-02-23] MEDS ORDERED: CEFTRIAXONE 1 GM in DEXTROSE 5%-WATER - 100 ML IVPB ONE (20:55)
[2020-02-23] MEDS ORDERED: CEFTRIAXONE 1 GM/50 ML BAG ONE (21:19)
--- NOTE | 2020-02-23 22:46 | PN ---
Teaching Attending Note Name of Resident: Octavio Dubose ATTENDING PHYSICIAN STATEMENT I saw and evaluated the patient. I reviewed the resident's note and discussed the case with the resident. I agree with the resident's findings and plan as documented. SUBJECTIVE: Patient is a 30 year old female with a PMH of Asthma, Cholelithiasis with jacob cyctitis, Recent left ankle injury after a fall (?6 weeks ago) and Nephrolithiasis who presents to the ER with right flank pain since earlier today. Patient stated that the pain has been worsening along with nausea and vomiting. Patient was seen in our ER on 02/21/2020 - CT showed and obstructing right renal stone. Was scheduled for a procedure on Thursday at [facility]. Patient denies fever and chills. Says she had a COVID-[address] [facility]. Works as a clerical worker. Denies alcohol, tobacco or illicit drug use. No sick contacts or recent travels. LMP was last week. Family history is unremarkable. OBJECTIVE: Alert Vital Signs Period Temp Pulse Resp BP Sys/Lion Pulse Ox Last 24 Hr 98.0 F 74-78 18 138/64 100-100 HEENT: No Jaundice, eye redness or discharge, PERRLA, EOMI. Normocephalic, atraumatic. External ears are normal and hearing is grossly intact. No nasal discharge. Neck: Supple, nontender. No palpable adenopathy or thyromegaly. No JVD Chest: Good effort. Clear to auscultation and percussion. Heart: Regular. No S3, rub or murmur Abdomen: Not distended, soft, right CVAT and no HSM. No rebound or guarding. Normal bowel sounds. Ext: Peripheral pulses intact. No leg edema. Tender left ankle. Skin: Warm and dry. No petechiae, rash or ecchymosis. Neuro: Alert. Oriented x3. CN 2-12 grossly intact. Sensation grossly intact in all four extremities and DTR are symmetric. Psych: Appropriate mood and affect. Good insight. Home Medications Medication Instructions Recorded NK [No Known Home Medication] 01/27/20 Abnormal Lab Results 02/23/20 02/23/20 19:45 19:45 WBC 12.0 H Hgb 10.2 L MCV 69.4 L MCH 21.2 L MCHC 30.6 L RDW 18.7 H Absolute Neuts (auto) 10.0 H Neutrophils % 83.3 H Chloride 108 H AST 13 L Current Medications Generic Name Dose Route Start Last Admin Trade Name Gabriel PRN Reason Stop Dose Admin Sodium Chloride 1,000 mls @ 75 mls/hr 02/24/20 02:00 02/24/20 02:08 Normal Saline - IV 75 mls/hr ASDIR GIA Administration Ketorolac Tromethamine 15 mg 02/24/20 01:51 Toradol Injection - IVPUSH 02/29/20 01:50 Q4H PRN PAIN LEVEL 6-10 Ondansetron HCl 4 mg 02/24/20 01:51 Zofran Injection IVPUSH Q6H PRN NAUSEA Tamsulosin HCl 0.4 mg 02/24/20 08:30 Flomax - PO DAILY@0830 [facility] ASSESSMENT AND PLAN: 1. Obstructing right kidney stone/UTI - On 02/21/2020 CT abdomen/pelvis showed a 4.5 x 4 mm obstructing stone in proximal right ureter with mild to moderate right hydronephrosis and proximal hydroureter; bilateral small stones. Will keep her NPO, hydrate with IV NS, strain her urine, get PT/INR, treat with IV Ceftriaxone, Flomax, consult Urology and refer to Nephrology for outpatient workup to search for stone disease risk factor. Use IV Ketorolac for pain control. No obvious fracture on dislocation on xray of left foot/ankle today, but previous xray from 01/27/2020 showed cortical avulsion fracture at the tip of the lateral malleolus. Will consult Ortho. Will contact [facility] during the day to confirm COVID-19 testing. Patient placed on airborne, droplet and contact isolation. ER staff prescribed Ceftriaxone, Ketorolac, Pepcid, Reglan, Zofran and IV NS for the patient. EKG shows NSR at 60/minute, LVH and QTc [address]-T wave changes. Will continue comprehensive care for all of patients comorbid conditions. 2. Obesity Counseled on the risks associated with obesity. Will provide patien t all the necessary assistance, counseling and positive reinforcement to facilitate weight loss. Consult transactional paralegal. 3. DVT prophylaxis - SCD, Early ambulation. 4. Advance directives - Full code
[2020-02-24] MEDS ORDERED: KETOROLAC TROMETHAMINE 15 MG/ML VIAL IVPUSH PRN ×2 (01:51→15:32)
[2020-02-24] MEDS ORDERED: ONDANSETRON 4 MG/2 ML VIAL IVPUSH PRN ×3 (01:51→19:11)
[2020-02-24] MEDS ORDERED: TAMSULOSIN HCL 0.4 MG CAP PO ONE (01:56)
[2020-02-24] MEDS ORDERED: SODIUM CHLORIDE 1,000 ML IV SCH (02:00)
[2020-02-24] MEDS ORDERED: TAMSULOSIN HCL 0.4 MG CAP ONE (02:01)
--- NOTE | 2020-02-24 03:04 | HP ---
CHIEF COMPLAINT: My back hurts PCP: HISTORY OF PRESENT ILLNESS: Evonne Young is a 30 Y F with PMH of Nephroli thiasis, Cholelithiasis w/cholecystitis, asthma, recurrent UTIs, and a recent Left ankle injury presents today to the ED with Right flank pain and R sided abdominal pain 9 days. The pain began at rest, sudden onset, constant in nature and sharp in quality, 5/10 in intensity, radiating to the back, no aggravating or alleviating factors. pain is also associated with Nausea and vomiting without any fever, chills, dysuria or hematuria. She reports multiple previous episodes of renal stones, which she was able to pass spontaneously. Patient reports LMP was last week with increased cramps and some heavy bleeding. Previous negative STI pannel in October, and reports that she is not currently sexually active. Last admission: 02/21/20: she presented with 6 days of worsening R.flank pain , nausea and vomiting. In ED she was given NS, Zonfran 4mg, and Ceftriaxone 1gm. ABD/Pelv CT was significant for 4.5 x 4 m obstructing stone in proximal R.ureter w/mild-mod R.renal hydronephrosis and proximal hydroureter. Patient did not want to get COVID testing so she decided to leave [facility]. In ER she received Toradol 30 mg, N/S 1,000, PEPCID 20mg, Zofran 4mg, Reglan 10mg, and Rocephin 1gm. She reports mild alleviation of her pain and nausea. she reports that she received her covid testing done today at [facility] for procedure on Thursday. ER course was notable for: (1) WBC 12 (2) H/H 10.2/69.4 (3) Recent Travel: Denies PAST MEDICAL HISTORY: As above in HPI PAST SURGICAL HISTORY: denies Social History: Smoking:denies Alcohol: occasionally Drugs: denies Allergies No Known Allergies Allergy (Verified 02/23/20 18:54) HOME MEDICATIONS: Home Medications Medication Instructions Recorded NK [No Known Home Medication] 01/27/20 REVIEW OF SYSTEMS CONSTITUTIONAL: Present: loss of appetite, Nausea, vomiting Absent: fever, chills, diaphoresis, generalized weakness, malaise, HEENT: Absent: rhinorrhea, nasal congestion, throat pain, difficulty swallowing CARDIOVASCULAR: Absent: chest pain, syncope, palpitations, irregular heart rate, lightheadedness, peripheral edema RESPIRATORY: Absent: cough, shortness of breath, dyspnea with exertion, orthopnea, wheezing GASTROINTESTINAL: Present: Right sided abdominal pain Absent: abdominal distension, nausea, vomiting, diarrhea, constipation GENITOURINARY: Present: flank pain Absent: dysuria, frequency, urgency, hesitancy, hematuria MUSCULOSKELETAL: Absent: myalgia, arthralgia, joint swelling, back pain, neck pain SKIN: Absent: rash, itching, pallor NEUROLOGIC: Absent: headache, focal weakness or paresthesias, dizziness, unsteady gait, bladder or bowel incontinence PHYSICAL EXAMINATION Vital Signs - 24 hr 02/23/20 02/23/20 02/23/20 18:50 22:36 22:37 Temperature 98.0 F Pulse Rate 74 78 Pulse Rate [ Left] Respiratory 18 Rate Blood Pressure 138/64 Blood Pressure [Left Arm] O2 Sat by Pulse 100 100 100 Oximetry (%) 02/24/20 02:09 Temperature Pulse Rate Pulse Rate [ 70 Left] Respiratory 18 Rate Blood Pressure Blood Pressure 110/64 [Left Arm] O2 Sat by Pulse 100 Oximetry (%) GENERAL: Awake, alert, and fully oriented, in no acute distress. HEAD: Normal with no signs of trauma. EYES: Pupils equal, round and reactive to light, extraocular movements intact, sclera anicteric, conjunctiva clear. EARS, NOSE, THROAT: Ears normal, nares patent, oropharynx clear without exudates. Moist mucous membranes. NECK: Normal range of motion, supple without lymphadenopathy, JVD, or masses. LUNGS: Breath sounds equal, clear to auscultation bilaterally. No wheezes, and no crackles. No accessory muscle use. HEART: Regular rate and rhythm, normal S1 and S2 without murmur, rub or gallop. ABDOMEN: Soft, Ruq tenderness and RLQ tenderness to palpation, not distended, normoactive bowel sounds, no guarding, no rebound, no masses. MUSCULOSKELETAL: Normal range of motion at all joints. No bony deformities or tenderness. CVA tenderness on Right side. UPPER EXTREMITIES: 2+ pulses, warm, well-perfused. No cyanosis. No clubbing. No peripheral edema. LOWER EXTREMITIES: 2+ pulses, warm, well-perfused. No calf tenderness. No peripheral edema. Laboratory Results - last 24 hr 07/02/23/20 02/23/20 09:02 19:45 19:45 WBC 12.0 H RBC 4.81 Hgb 10.2 L Hct 33.4 MCV 69.4 L MCH 21.2 L MCHC 30.6 L RDW 18.7 H Plt Count 324 MPV 9.4 Absolute Neuts (auto) 10.0 H Neutrophils % 83.3 H Lymphocytes % 10.8 D Monocytes % 5.4 Eosinophils % 0.2 Basophils % 0.3 Nucleated RBC % 0 Sodium 142 Potassium 3.9 Chloride 108 H Carbon Dioxide 24 Anion Gap 11 BUN 9.9 Creatinine 1.1 Est GFR (CKD-EPI)AfAm 79.12 Est GFR (CKD-EPI)NonAf 68.27 Random Glucose 88 Calcium 9.4 Total Bilirubin 0.3 AST 13 L ALT 18 Alkaline Phosphatase 114 Total Protein 7.9 Albumin 3.9 Urine Color Yellow Urine Appearance Clear Urine pH 7.0 Ur Specific [place] 1.014 Urine Protein Negative Urine Glucose (UA) Negative Urine Ketones Trace Urine Blood Negative Urine Nitrite Negative Urine Bilirubin Negative Urine Urobilinogen 0.2 Ur Leukocyte Esterase Moderate Urine WBC (Auto) 98 Urine RBC (Auto) 21.9 Urine Casts (Auto) 1 U Epithel Cells (Auto) >36 U Sm Round Cell (Auto) None Urine Bacteria (Auto) 1547 ASSESSMENT/PLAN: 30 Y F with PMH of Nephrolithiasis, Cholelithiasis w/cholecystitis, asthma, recurrent UTIs, and a recent Left ankle injury presents today to the ED with Right flank pain and R sided abdominal pain 9 days. ABD/Pelv CT(02/20) was significant for 4.5 x 4 m obstructing stone in proximal R.ureter w/mild-mod R.renal hydronephrosis and proximal hydroureter. Admitted for management of nephrolithiasis. #Nephrolithiasis - 02/20 CT was significant for 4.5x4m obstructing stone in R. ureter + r. renal hydropnephrosis - Started on Tamsulosin 0.4mg daily - No concrete evidence of IVF in nephrolithiasis, however due nausea/vomiting and anorexia for 9D will start N/S @ 75 - In ED, patient recieved Ketorolac 30mg, will continue ketorolac 15mg Q4H for mild-mod pain. - Urology consult placed (Outpatient Dr. Haji), will f/u with recs - continue Zofran, no Prolongation of QTc is seen on EKG - Will refer the patient for Outpatient Nephrology for evaluation/workup of renal stone disease, risk factors and management. - will f/u with COVID results from [facility] during the daytime #UTI - 2/2 to renal stone - asymptomatic, but will treat as prophylaxis - In ED patient recieved 1mg of ceftriaxone - Will continue Ceftriaxone 1mg QD #Left foot injury - 01/27/2020 XR foot/ankle was significant for cortical avulsion fracture at the tip of lateral malleolus - patient report improvement of her pain since her last visit - will refer patient for outpt ortho consult. #FEN - N/S @ 75 - Monitor electrolytes, WBC, H/H - NPO for possible procedure #Prophylaxis - SCDs, holding chemical AC for possible procedure #Dispo - Will monitor in M/S and F/U with urology recs for procedural intervention vs passive stone facilitation Visit type - Emergency Visit Emergency Visit: Yes ED Registration Date: 02/23/20 Care time: The patient presented to the Emergency Department on the above date and was hospitalized for further evaluation of their emergent condition. - New Patient This patient is new to me today: No - Critical Care Critical Care patient: No ATTENDING PHYSICIAN STATEMENT I saw and evaluated the patient. I reviewed the resident's note and discussed the case with the resident. I agree with the resident's findings and plan as documented. SUBJECTIVE: OBJECTIVE: ASSESSMENT AND PLAN:
[2020-02-24] MEDS ORDERED: DOCUSATE SODIUM 100 MG CAPSULE (FP) PO ONE (03:42)
[2020-02-24 04:10] VITALS: BMI 35.0
[2020-02-24] MEDS ORDERED: ACETAMINOPHEN 1000 MG/100 ML VIAL (NON FORMULARY) IVPB PRN ×2 (07:19→19:11)
[2020-02-24] MEDS ORDERED: TAMSULOSIN HCL 0.4 MG CAP PO SCH (08:30)
[2020-02-24] MEDS ORDERED: DOCUSATE SODIUM 100 MG CAPSULE (FP) PO PRN ×2 (09:00→19:11)
[2020-02-24] MEDS ORDERED: POLYETHYLENE GLYCOL 3350 119 GM BTL PO SCH (10:00)
--- NOTE | 2020-02-24 10:22 | EKG ---
Test Reason : Blood Pressure : / mmHG Vent. Rate : 060 BPM Atrial Rate : 060 BPM P-R Int : 144 ms QRS Dur : 090 ms QT Int : 418 ms P-R-T Axes : 010 008 011 degrees QTc Int : 418 ms NORMAL SINUS RHYTHM MINIMAL VOLTAGE CRITERIA FOR LVH, MAY BE NORMAL VARIANT WHEN COMPARED WITH ECG OF 22-FEB-2020 00:38, NO SIGNIFICANT CHANGE WAS FOUND Confirmed by ABRAM JAIMES MD ([id number]) on 02/24/2020 10:22:03 AM Referred By: Confirmed By:ABRAM JAIMES MD
--- NOTE | 2020-02-24 10:22 | PN ---
Physical Exam: SUBJECTIVE: Patient seen and examined at bedside this morning. Patient admitted overnight due to right flank pain, known to have nephrolithiasis. OBJECTIVE: Vital Signs Temperature 98.4 F 02/24/20 04:10 Pulse Rate 70 02/24/20 04:10 Respiratory Rate 18 02/24/20 04:10 Blood Pressure 151/94 02/24/20 04:10 O2 Sat by Pulse Oximetry (%) 100 02/24/20 04:10 GENERAL: The patient is awake, alert, and fully oriented, in no acute distress. NECK: full range of motion, supple. LUNGS: Breath sounds equal, clear to auscultation bilaterally HEART: Regular rate and rhythm, S1, S2 ABDOMEN: Soft, RLQ tenderness, nondistended, normoactive bowel sounds, R CVA tenderness EXTREMITIES: 2+ pulses, warm, well-perfused, no edema. NEUROLOGICAL: Cranial nerves II through XII grossly intact. Normal speech PSYCH: Normal mood, normal affect. SKIN: Warm, dry, normal turgor, Laboratory Results - last 24 hr 02/23/20 02/23/20 02/23/20 09:02 19:45 19:45 WBC 12.0 H RBC 4.81 Hgb 10.2 L Hct 33.4 MCV 69.4 L MCH 21.2 L MCHC 30.6 L RDW 18.7 H Plt Count 324 MPV 9.4 Absolute Neuts (auto) 10.0 H Neutrophils % 83.3 H Lymphocytes % 10.8 D Monocytes % 5.4 Eosinophils % 0.2 Basophils % 0.3 Nucleated RBC % 0 Sodium 142 Potassium 3.9 Chloride 108 H Carbon Dioxide 24 Anion Gap 11 BUN 9.9 Creatinine 1.1 Est GFR (CKD-EPI)AfAm 79.12 Est GFR (CKD-EPI)NonAf 68.27 Random Glucose 88 Calcium 9.4 Total Bilirubin 0.3 AST 13 L ALT 18 Alkaline Phosphatase 114 Total Protein 7.9 Albumin 3.9 Urine Color Yellow Urine Appearance Clear Urine pH 7.0 Ur Specific [place] 1.014 Urine Protein Negative Urine Glucose (UA) Negative Urine Ketones Trace Urine Blood Negative Urine Nitrite Negative Urine Bilirubin Negative Urine Urobilinogen 0.2 Ur Leukocyte Esterase Moderate Urine WBC (Auto) 98 Urine RBC (Auto) 21.9 Urine Casts (Auto) 1 U Epithel Cells (Auto) >36 U Sm Round Cell (Auto) None Urine Bacteria (Auto) 1547 Active Medications Generic Name Dose Route Start Last Admin Trade Name Freq PRN Reason Stop Dose Admin Acetaminophen 1,000 mg 02/24/20 07:19 Ofirmev Injection - IVPB 02/25/20 07:19 Q6H PRN PAIN LEVEL 6-10 Docusate Sodium 100 mg 02/24/20 09:00 Colace - PO BID PRN CONSTIPATION Sodium Chloride 1,000 mls @ 75 mls/hr 02/24/20 02:00 02/24/20 02:08 Normal Saline - IV 75 mls/hr ASDIR GIA Administration Ondansetron HCl 4 mg 02/24/20 01:51 02/24/20 07:39 Zofran Injection IVPUSH 4 mg Q6H PRN Administration NAUSEA Polyethylene Glycol 17 gm 02/24/20 10:00 Miralax (For Daily Use) - PO DAILY GIA Tamsulosin HCl 0.4 mg 02/24/20 08:30 02/24/20 07:50 Flomax - PO Not Given DAILY@0830 [facility] ASSESSMENT/PLAN: Patient is a 30 Y F with PMH of Nephrolithiasis, Cholelithiasis w/cholecystitis, asthma, recurrent UTIs, and a recent Left ankle injury presents today to the ED with Right flank pain 9 days. ABD/Pelv CT(02/20) was significant for 4.5 x 4 m obstructing stone in proximal R.ureter w/mild-mod R.renal hydronephrosis and proximal hydroureter. Admitted for management of nephrolithiasis. #Nephrolithiasis - 02/20 CT was significant for 4.5x4m obstructing stone in R. ureter + r. renal hydropnephrosis - Started on Tamsulosin 0.4mg daily - Toradol and Tylenol PRN for pain - continue Zofran, no Prolongation of QTc is seen on EKG - Urology (Dr. Haji) consulted. Recommendations appreciated - Plan for OR today - will keep patient NPO #UTI - 2/2 to renal stone - asymptomatic, but will treat as prophylaxis - Will continue Ceftriaxone 1mg QD #Left foot injury - 01/27/2020 XR foot/ankle was significant for cortical avulsion fracture at the tip of lateral malleolus - patient report improvement of her pain since her last visit - will refer patient for outpt ortho consult. #FEN - IV N/S @ 75 - routine bmp monitoring - NPO #Prophylaxis - SCDs, holding chemical AC for procedure #Dispo - full code - med surg Visit type - Emergency Visit Emergency Visit: Yes ED Registration Date: 02/23/20 Care time: The patient presented to the Emergency Department on the above date and was hospitalized for further evaluation of their emergent condition. - New Patient This patient is new to me today: No - Critical Care Critical Care patient: No ATTENDING PHYSICIAN STATEMENT I saw and evaluated the patient. I reviewed the resident's note and discussed the case with the resident. I agree with the resident's findings and plan as documented. SUBJECTIVE: OBJECTIVE: ASSESSMENT AND PLAN:
[2020-02-24] MEDS ORDERED: ALPRAZolam 1 MG TABLET PO PRN ×2 (12:53→19:11)
[2020-02-24] MEDS ORDERED: CEFTRIAXONE 1 GM in DEXTROSE 5%-WATER - 50 ML IVPB SCH (13:45)
[2020-02-24] MEDS ORDERED: DEXTROSE 5%-WATER - 50 ML IVPB ONE (13:59)
[2020-02-24] MEDS ORDERED: cefTRIAXone SODIUM 1 GM VIAL ONE (13:59)
[2020-02-24] MEDS ORDERED: oxyCODONE HCL 5 MG TABLET PO PRN ×2 (16:29→19:11)
[2020-02-24] MEDS ORDERED: PROMETHAZINE HCL 25 MG/1 ML VIAL IVPUSH PRN ×2 (16:29→19:11)
[2020-02-24] MEDS ORDERED: SUCCINYLCHOLINE CHLORIDE 200 MG/10 ML SYRINGE ONE (18:05)
[2020-02-24] MEDS ORDERED: PROPOFOL 20 ML ONE ×2 (18:05)
--- NOTE | 2020-02-24 18:14 | CONSULT ---
Consult - text type - Consultation Consultation Note: cc: right hydronephrosis with ureteral stone hpi: patient is a 30 yo female with an obstructing right ureteral stone with severe colic with nausea and vomiting. Patient also with leukocytosis and acute renal injury. Baseline creatinine is 0.6 to 0.7 and is now 1.1 with leukocytosis. PE moderate right CVAT imp right obstructing ureteral stone right hydronephrosis with acute renal injury renal colic leukocytosis plan patient is emergently taken to the operating room due to the severity of the renal colic and to maintain renal function. discussed x 25 minutes with patient and staff
[2020-02-24] MEDS ORDERED: KETOROLAC TROMETHAMINE 30 MG/1 ML VIAL ONE (18:49)
[2020-02-24] MEDS ORDERED: DEXAMETHASONE SOD PHOSPHATE 4 MG/1 ML VIAL ONE (18:49)
--- NOTE | 2020-02-24 19:05 | OP ---
Operative Note - Note: Operative Date: 02/24/20 Pre-Operative Diagnosis: right hydronephrosis with obstructing ureteral stone/renal colic/acute renal injury Operation: cystoscopy/right retrograde pyelogram/right ureteroscopic stone manipulation and stent placement Findings: 5mm proximal impacted stone Post-Operative Diagnosis: Same as Pre-op Surgeon: Gilson Haji Anesthesia: General Drains & Tubes with Location: 01/31 right ureteral stent Operative Report Dictated: Yes
[2020-02-24] MEDS: SODIUM CHLORIDE 1,000 ML IV SCH (21:37)
[2020-02-24] MEDS: KETOROLAC TROMETHAMINE 15 MG/ML VIAL IVPUSH PRN (23:05)
[2020-02-25] MEDS: MELATONIN 5 MG TABLETS PO SCH ×2 (02:30→22:03)
[2020-02-25] MEDS ORDERED: DEXTROSE 5%-WATER - 50 ML IVPB ONE (08:50)
[2020-02-25] MEDS ORDERED: cefTRIAXone SODIUM 1 GM VIAL ONE (08:50)
[2020-02-25] MEDS: CEFTRIAXONE 1 GM in DEXTROSE 5%-WATER - 50 ML IVPB SCH (09:00)
[2020-02-25] MEDS: POLYETHYLENE GLYCOL 3350 119 GM BTL PO SCH (09:09)
[2020-02-25] MEDS: oxyCODONE HCL 5 MG TABLET PO PRN ×2 (09:39→16:21)
--- NOTE | 2020-02-25 17:39 | PN ---
Physical Exam: Patient is a 30 Y F with PMH of Nephrolithiasis, Cholelithiasis w/cholecystitis, asthma, recurrent UTIs, and a recent Left ankle injury presents today to the ED with Right flank pain 9 days. ABD/Pelv CT(02/20) was significant for 4.5 x 4 m obstructing stone in proximal R.ureter w/mild-mod R.renal hydronephrosis and proximal hydroureter. Admitted for management of nephrolithiasis and hydronephrosis SUBJECTIVE: Patient seen and examined at bedside, complains of mild discomfort, afraid of urinating in anticipation of pain, however states that she has no pain but only discomfort when urinating. pt gave provider permission to discuss case with her mother over the phone. Case discussed with the patient and her mother, her questions answered to her apparent satisfaction. OBJECTIVE: Vital Signs Period Temp Pulse Resp BP Sys/Lion Pulse Ox Last 24 Hr 97. F-98.5 F 58-73 16-19 115-136/50-84 96-100 GENERAL: The patient is awake, alert, and fully oriented, in no acute distress. HEAD: Normal with no signs of trauma. EYES: PERRL, extraocular movements intact, sclera anicteric, conjunctiva clear. No ptosis. ENT: Ears normal, nares patent, oropharynx clear without exudates, moist mucous membranes. NECK: Trachea midline, full range of motion, supple. LUNGS: Breath sounds equal, clear to auscultation bilaterally, no wheezes, no crackles, no accessory muscle use. HEART: Regular rate and rhythm, S1, S2 without murmur, rub or gallop. ABDOMEN: CVA tenderness, mild abdominal discomfort, no masses or H-S megaly. EXTREMITIES: 2+ pulses, warm, well-perfused, no edema. NEUROLOGICAL: Cranial nerves II through XII grossly intact. Normal speech, gait not observed. PSYCH: Normal mood, normal affect. SKIN: Warm, dry, normal turgor, no rashes or lesions noted Active Medications Generic Name Dose Route Start Last Admin Trade Name Freq PRN Reason Stop Dose Admin Docusate Sodium 100 mg 02/24/20 19:11 02/24/20 23:09 Colace - PO 100 mg BID PRN Administration CONSTIPATION Fentanyl 50 mcg 02/24/20 19:11 Sublimaze Injection - IVPUSH [id number] PRN PAIN-PACU ORDER X 4 DOSES ONLY Ceftriaxone Sodium 1 gm/ 50 mls @ 100 mls/hr 02/25/20 10:00 02/25/20 09:00 Dextrose IVPB 100 mls/hr DAILY GIA Administration Sodium Chloride 1,000 mls @ 75 mls/hr 02/24/20 19:11 02/24/20 21:37 Normal Saline - IV Not Given ASDIR GIA Ketorolac Tromethamine 15 mg 02/24/20 19:11 02/24/20 23:05 Toradol Injection - IVPUSH 02/29/20 15:31 15 mg Q6H PRN Administration PAIN LEVEL 7 - 10 Melatonin 10 mg 02/25/20 02:20 02/25/20 02:30 Melatonin PO 10 mg HS GIA Administration Ondansetron HCl 4 mg 02/24/20 19:11 Zofran Injection IVPUSH Q6H PRN NAUSEA AND/OR VOMITING Oxycodone HCl 10 mg 02/24/20 19:18 02/25/20 16:21 Roxicodone - PO 02/25/20 19:17 10 mg Q4H PRN Administration PAIN LEVEL 6-10 Polyethylene Glycol 17 gm 02/25/20 10:00 02/25/20 09:09 Miralax (For Daily Use) - PO Not Given DAILY [facility] Promethazine HCl 12.5 mg 02/24/20 19:11 Phenergan Injection - IVPUSH Q6H PRN NAUSEA-FOR RESCUE AFTER 15 MIN ASSESSMENT/PLAN: #Nephrolithiasis - 02/20 CT was significant for 4.5x4m obstructing stone in R. ureter + r. renal hydropnephrosis - Started on Tamsulosin 0.4mg daily - Toradol and Tylenol PRN for pain - continue Zofran, ceftriaxone.WBC 12 from yesterday (refused lab today) - spoke with patient about importance of participation in her care and allowing proper work up. Agreed for blood work in AM - Urology consult appreciated, pt cleared for discharge from his end for outpatient follow up and possible lithotripsy later - tolerating diet - refusing IV fluids, wants to c/w oral hydration # DVT Prophylaxis - SCDs, pt young and mobile # will discharge in AM for outpatient follow up with urology Visit type - Emergency Visit Emergency Visit: Yes ED Registration Date: 02/23/20 Care time: The patient presented to the Emergency Department on the above date and was hospitalized for further evaluation of their emergent condition. - New Patient This patient is new to me today: Yes Date on this admission: 02/25/20 - Critical Care Critical Care patient: No - Discharge Referral Referred to [facility] Med P.C.: No
[2020-02-25] MEDS: KETOROLAC TROMETHAMINE 15 MG/ML VIAL IVPUSH PRN (21:59)
[2020-02-25] MEDS: SODIUM CHLORIDE 1,000 ML IV SCH (22:49)
[2020-02-26] MEDS ORDERED: cefTRIAXone SODIUM 1 GM VIAL ONE (09:21)
[2020-02-26] MEDS ORDERED: DEXTROSE 5%-WATER - 50 ML IVPB ONE (09:22)
--- NOTE | 2020-02-26 10:15 | DS ---
Physical Exam: SUBJECTIVE: Patient seen and examined at bedside, stated her pain has improved from yesterday OBJECTIVE: Vital Signs Period Temp Pulse Resp BP Sys/Lion Pulse Ox Last 24 Hr 97.7 F-98.1 F 54-59 18-20 106-142/56-87 96-98 Laboratory Tests 02/23/20 02/23/20 02/23/20 09:02 19:45 19:45 WBC 12.0 H RBC 4.81 Hgb 10.2 L Hct 33.4 MCV 69.4 L MCH 21.2 L MCHC 30.6 L RDW 18.7 H Plt Count 324 MPV 9.4 Absolute Neuts (auto) 10.0 H Neutrophils % 83.3 H Lymphocytes % 10.8 D Monocytes % 5.4 Eosinophils % 0.2 Basophils % 0.3 Nucleated RBC % 0 Sodium 142 Potassium 3.9 Chloride 108 H Carbon Dioxide 24 Anion Gap 11 BUN 9.9 Creatinine 1.1 Est GFR (CKD-EPI)AfAm 79.12 Est GFR (CKD-EPI)NonAf 68.27 Random Glucose 88 Calcium 9.4 Total Bilirubin 0.3 AST 13 L ALT 18 Alkaline Phosphatase 114 Total Protein 7.9 Albumin 3.9 Urine Color Yellow Urine Appearance Clear Urine pH 7.0 Ur Specific [place] 1.014 Urine Protein Negative Urine Glucose (UA) Negative Urine Ketones Trace Urine Blood Negative Urine Nitrite Negative Urine Bilirubin Negative Urine Urobilinogen 0.2 Ur Leukocyte Esterase Moderate Urine WBC (Auto) 98 Urine RBC (Auto) 21.9 Urine Casts (Auto) 1 U Epithel Cells (Auto) >36 U Sm Round Cell (Auto) None Urine Bacteria (Auto) 1547 Urine HCG, Qual 02/24/20 11:10 WBC RBC Hgb Hct MCV MCH MCHC RDW Plt Count MPV Absolute Neuts (auto) Neutrophils % Lymphocytes % Monocytes % Eosinophils % Basophils % Nucleated RBC % Sodium Potassium Chloride Carbon Dioxide Anion Gap BUN Creatinine Est GFR (CKD-EPI)AfAm Est GFR (CKD-EPI)NonAf Random Glucose Calcium Total Bilirubin AST ALT Alkaline Phosphatase Total Protein Albumin Urine Color Urine Appearance Urine pH Ur Specific [place] Urine Protein Urine Glucose (UA) Urine Ketones Urine Blood Urine Nitrite Urine Bilirubin Urine Urobilinogen Ur Leukocyte Esterase Urine WBC (Auto) Urine RBC (Auto) Urine Casts (Auto) U Epithel Cells (Auto) U Sm Round Cell (Auto) Urine Bacteria (Auto) Urine HCG, Qual Negative Active Medications Docusate Sodium (Colace -) 100 mg PO BID PRN PRN Reason: CONSTIPATION Last Admin: 02/24/20 23:09 Dose: 100 mg Documented by: Fentanyl (Sublimaze Injection -) 50 mcg IVPUSH [id number] PRN PRN Reason: PAIN-PACU ORDER X 4 DOSES ONLY Ceftriaxone Sodium 1 gm/ (Dextrose) 50 mls @ 100 mls/hr IVPB DAILY [facility] Last Admin: 02/25/20 09:00 Dose: 100 mls/hr Documented by: Sodium Chloride (Normal Saline -) 1,000 mls @ 75 mls/hr IV ASDIR [facility] Last Admin: 02/25/20 22:49 Dose: Not Given Documented by: Ketorolac Tromethamine (Toradol Injection -) 15 mg IVPUSH Q6H PRN PRN Reason: PAIN LEVEL 7 - 10 Stop: 02/29/20 15:31 Last Admin: 02/25/20 21:59 Dose: 15 mg Documented by: Melatonin (Melatonin) 10 mg PO [facility] Last Admin: 02/25/20 22:03 Dose: 10 mg Documented by: Ondansetron HCl (Zofran Injection) 4 mg IVPUSH Q6H PRN PRN Reason: NAUSEA AND/OR VOMITING Last Admin: 02/26/20 03:27 Dose: 4 mg Documented by: Polyethylene Glycol (Miralax (For Daily Use) -) 17 gm PO DAILY [facility] Last Admin: 02/25/20 09:09 Dose: Not Given Documented by: Promethazine HCl (Phenergan Injection -) 12.5 mg IVPUSH Q6H PRN PRN Reason: NAUSEA-FOR RESCUE AFTER 15 MIN Discharge medications: Levaquin 750mg PO daily for 5 days Tylenol 500mg q6H PRN pain 1-5 Motrin 600mg TID PRN pain 6-10 PHYSICAL EXAM GENERAL: The patient is awake, alert, and fully oriented, in no acute distress. HEAD: Normal with no signs of trauma. EYES: PERRL, extraocular movements intact, sclera anicteric, conjunctiva clear. ENT: Ears normal, nares patent, oropharynx clear without exudates, moist mucous membranes. NECK: Trachea midline, full range of motion, supple. LUNGS: Breath sounds equal, clear to auscultation bilaterally, no wheezes, no crackles, no accessory muscle use. HEART: Regular rate and rhythm, S1, S2 without murmur, rub or gallop. ABDOMEN: Soft, CVA tender, nondistended, normoactive bowel sounds, no guarding, no rebound, no hepatosplenomegaly, no masses EXTREMITIES: 2+ pulses, warm, well-perfused, no edema. NEUROLOGICAL: Cranial nerves II through XII grossly intact. Normal speech, gait not observed. PSYCH: Normal mood, normal affect. SKIN: Warm, dry, normal turgor, no rashes or lesions noted. LABS HOSPITAL COURSE: pt was found to have 4.5x4mm obstructing stone in Rt Ureter + hydronephrosis, was taken to OR immediately, stent was placed and stone manipulation was done. Pain medication were given. Pt refused to recieve IV fluids and refused to have her blood drawn for daily evaluation. She reported that she still has pain but improved from admission. Urologist cleared patient and recommended outpatient follow up to schedule stone removal. Pt was discharged on pain medications and antibiotics for outpatient follow up Date of Admission:02/23/20 Date of Discharge: 02/26/20 Minutes to complete discharge: 40 Discharge Summary Problems reviewed: Yes Reason For Visit: CALCULUS OF KIDNEY Current Active Problems Abdominal discomfort (Acute) Rt flank pain (Acute) UTI (urinary tract infection) (Acute) Ureterolithiasis (Acute) Condition: Improved - Instructions Diet, Activity, Other Instructions: Please, call Urologist and schedule a follow up appointment within a week. Please, call you primary care doctor and schedule a follow up appointment Referrals: Ijeoma Sagastume MD [Primary Care Provider] - Gilson Haji MD [Staff Physician] - Disposition: HOME - Home Medications Comprehensive Discharge Medication List: Ambulatory Orders Acetaminophen [Tylenol -] 500 mg PO Q6H #100 tablet 02/26/20 Levofloxacin [Levaquin] 750 mg PO DAILY 5 Days #5 tablet 02/26/20 This patient is new to me today: No Emergency Visit: Yes ED Registration Date: 02/23/20 Care time: The patient presented to the Emergency Department on the above date and was hospitalized for further evaluation of their emergent condition. Critical Care patient: No - Discharge Referral Referred to [facility] Med P.C.: No
[2020-02-26] MEDS: CEFTRIAXONE 1 GM in DEXTROSE 5%-WATER - 50 ML IVPB SCH (10:35)
[2020-02-26] MEDS: POLYETHYLENE GLYCOL 3350 119 GM BTL PO SCH (10:36)
[2020-02-26 11:59] VITALS: BP 115/62; PULSE 59; TEMP 98.1
--- NOTE | 2020-02-26 14:56 | OP ---
DATE OF OPERATION: 02/24/2020 PREOPERATIVE DIAGNOSIS: Right hydronephrosis with obstructing ureteral stone with severe renal colic, acute renal injury with leukocytosis. PROCEDURE: Cystoscopy, right retrograde pyelogram, right ureteroscopic stone manipulation and right ureteral stent placement. ATTENDING SURGEON: Dinesh Meredith MD ANESTHESIA: General. DESCRIPTION OF OPERATION: Patient was brought in the operating room, placed in a supine position on the operating room table. Anesthesia and preoperative antibiotics were administered. At this point the patient was prepped and draped in the usual sterile manner in a dorsal lithotomy position. Cystoscopy was performed. There was no evidence of stone or neoplasm within the bladder. An open-ended catheter was utilized to perform a retrograde pyelogram which showed a proximal obstructing filling defect with a grade 4 or 5 hydroureteronephrosis proximal to the filling defect. At this point a wire was passed proximally. Ureteroscopy was performed and a 5-mm+ stone was noted 3 cm below the right ureteropelvic junction. Stone was impacted. With gentle maneuvering with the ureteroscope the stone was disimpacted and migrated into the kidney. At this point hematuric urine started draining from the kidney causing poor visualization of the stone. It was decided that the patient would be best served with a stent at this point to avoid potential morbidity. The ureteroscope was removed. Using the Seldinger technique a 6-Azeri 24-cm stent was placed over the wire with cystoscopic visualization. There were no complications noted. The patient tolerated the procedure very well. DISPOSITION: Patient to recovery room. DINESH MEREDITH M.D. [id number]
== END 2020-02-26 12:45 | disposition home or self-care (01) | DRG 463 ==
LOC: JER 18:38 → JERBED 21:16 → J7W 02-24 03:21
PROVIDERS: ADMIT Internal Medicine; ATTEND Student in an Organized Health Care Education/Training Program
PROC: 0T768DZ Dilation of Right Ureter with Intraluminal Device, Via Natural or Artificial Opening Endoscopic (ICD-10-PCS; principal; 2020-02-24 17:30)
PROC: BT0BZZZ Plain Radiography of Bladder and Urethra (ICD-10-PCS; 2020-02-24 17:30)
DX: N13.6 Pyonephrosis (principal); J45.909 Unspecified asthma, uncomplicated; R10.31 Right lower quadrant pain; R63.0 Anorexia; D72.829 Elevated white blood cell count, unspecified; N17.9 Acute kidney failure, unspecified; E66.9 Obesity, unspecified; Z68.32 Body mass index [BMI] 32.0-32.9, adult; R11.2 Nausea with vomiting, unspecified; S82.65XA Nondisplaced fracture of lateral malleolus of left fibula, initial encounter for closed fracture; W18.39XA Other fall on same level, initial encounter; Y92.89 Other specified places as the place of occurrence of the external cause
CPT/HCPCS: 36415; 73610-TC-LT-FY; 73630-TC-LT; 80053; 81003; 84703; 85025; 87086; 93005; 93010; 94760; 99285-25; J0131

== ENCOUNTER 2020-04-02 04:35 | Day surgery (SDC) | payer OTHER ==
[2020-03-29 17:16] VITALS: BMI 33.3
[2020-04-02] MEDS ORDERED: MIDAZOLAM HCL 2 MG/2 ML SINGLE DOSE VIAL ONE ×2 (15:59→16:01)
--- NOTE | 2020-04-02 17:03 | OP ---
Operative Note - Note: Operative Date: 04/02/20 Pre-Operative Diagnosis: Right renal stone Operation: Right ESWL Findings: 4 mm lower pole Right renal stone Post-Operative Diagnosis: Same as Pre-op Surgeon: Gilson Haij Anesthesia: Regional Estimated Blood Loss (mls): 0 Operative Report Dictated: Yes
[2020-04-02] MEDS ORDERED: oxyCODONE HCL 5 MG TABLET PO PRN (17:44)
[2020-04-02] MEDS ORDERED: ONDANSETRON 4 MG/2 ML VIAL IVPUSH PRN (17:44)
[2020-04-02] MEDS ORDERED: ACETAMINOPHEN 325 MG TABLET (FP) PO PRN (17:44)
[2020-04-02] MEDS ORDERED: LACTATED RINGERS SOLUTION 1,000 ML IV SCH (17:45)
[2020-04-02 18:30] VITALS: BP 133/85; PULSE 70; TEMP 97.8
--- NOTE | 2020-04-02 19:17 | OP ---
DATE OF OPERATION: 04/02/2020 PREOPERATIVE DIAGNOSIS: Right renal stone. POSTOPERATIVE DIAGNOSIS: Right renal stone. PROCEDURE: Right extracorporeal shockwave lithotripsy. ATTENDING: Dinesh Haji M.D. ANESTHESIA: Fractional. DESCRIPTION OF PROCEDURE: Patient was brought in the operating room, placed in a supine position on the operating room table. Ultrasonography and fluoroscopy revealed a 4-mm right lower pole stone. Anesthesia and preoperative antibiotics were then administered. The patient was then given extracorporeal shockwave lithotripsy, 3000 impulses at 20 joules of power were administered to the stone with excellent fragmentation noted under realtime ultrasonography and fluoroscopy. The patient tolerated the procedure very well. DISPOSITION: To recovery room. DINESH MEREDITH M.D. [id number]
== END 2020-04-02 18:20 | disposition home or self-care (01) ==
LOC: JASU-SURG 04:35
PROVIDERS: ATTEND Urology
PROC: 0TF3XZZ Fragmentation in Right Kidney Pelvis, External Approach (ICD-10-PCS; principal; 2020-04-02 15:15)
DX: N20.0 Calculus of kidney (principal)
CPT/HCPCS: 81025

== ENCOUNTER 2022-04-03 00:15 | Emergency (ER) | payer OTHER ==
[2022-04-03 01:11] VITALS: BP 144/98; PULSE 70; RESP 19; TEMP 98.9; BMI 33.3
[2022-04-03] MEDS ORDERED: KETOROLAC TROMETHAMINE 30 MG/1 ML VIAL IM ONE (01:31)
[2022-04-03] MEDS ORDERED: ACETAMINOPHEN 325 MG TABLET (FP) PO ONE (01:36)
[2022-04-03] MEDS ORDERED: ACETAMINOPHEN 325 MG TABLET (FP) ONE (01:45)
[2022-04-03] MEDS ORDERED: KETOROLAC TROMETHAMINE 30 MG/1 ML VIAL ONE (01:53)
[2022-04-03 02:18] LABS: HCG,QUALITATIVE URINE Negative
[2022-04-03 02:24] LABS: EPI CELLS 15 /uL (0-25.1); HYALINE CASTS 1 /uL (0-3.1); URINE APPEARANCE CLOUDY; URINE BACTERIA 506 /uL (0-1359); URINE BILIRUBIN NEGATIVE (NEGATIVE); URINE COLOR YELLOW; URINE GLUCOSE (UA) NEGATIVE (NEGATIVE); URINE KETONE NEGATIVE (NEGATIVE); URINE LEUK ESTERASE 2+ (NEGATIVE); URINE NITRITE NEGATIVE (NEGATIVE); URINE PROTEIN NEGATIVE (NEGATIVE); URINE RBC 4 /uL (0-23.9); URINE UROBILINOGEN 0.2 mg/dL (0.2-1.0); URINE WBC 76 /uL (0-25.8)
[2022-04-03] MEDS ORDERED: NITROFURANTOIN MACROCRYSTAL 50 MG CAPSULE (FP) PO ONE (02:30)
[2022-04-09] MEDS ORDERED: IBUPROFEN 600 MG TABLET (FP) PO ONE (14:58)
== END 2022-04-03 02:55 | disposition home or self-care (01) ==
LOC: JER 00:15
PROC: 3E0233Z Introduction of Anti-inflammatory into Muscle, Percutaneous Approach (ICD-10-PCS; principal; 2022-04-03)
DX: K08.89 Other specified disorders of teeth and supporting structures (principal); H92.01 Otalgia, right ear; N39.0 Urinary tract infection, site not specified
CPT/HCPCS: 81003; 84703; 99284-25

== ENCOUNTER 2022-12-25 17:55 | Emergency (ER) | payer OTHER ==
[2022-12-25 18:24] VITALS: BP 126/74; PULSE 82; RESP 18; TEMP 97.8; BMI 31.6
== END 2022-12-25 19:00 | disposition home or self-care (01) ==
LOC: FER 17:55
DX: M25.561 Pain in right knee (principal); Y93.F2 Activity, caregiving, lifting
CPT/HCPCS: 73560-TC-RT-FY; 99283-25

== ENCOUNTER 2023-02-04 23:52 | Observation (INO) | payer OTHER ==
[2023-02-05] MEDS ORDERED: SODIUM CHLORIDE 0.9% 500 ML INFUS.BAG IV ONE (00:29)
[2023-02-05] MEDS ORDERED: ONDANSETRON 4 MG/2 ML VIAL IVPUSH ONE (00:29)
[2023-02-05] MEDS ORDERED: FAMOTIDINE 20 MG/50 ML IVPB 20 MG/50 ML MG IVPB ONE (00:31)
[2023-02-05] MEDS ORDERED: ONDANSETRON 4 MG/2 ML VIAL ONE ×2 (00:43→10:17)
[2023-02-05] MEDS ORDERED: FAMOTIDINE 10 MG/ML VIAL IVPB ONE (00:43)
[2023-02-05] MEDS ORDERED: ACETAMINOPHEN INJECTION 100 ML IVPB ONE (00:48)
[2023-02-05 01:07] LABS: BASO % 0.5 % (0-2.0); EOS % 0.2 % (0-4.5); HEMOGLOBIN 11.7 GM/dL (10.7-15.3); LYMPH % 9.8 % (8-40); MCH 21.2 pg (25.7-33.7); MCHC 30.7 g/dl (32.0-36.0); MEAN CELL VOLUME 69.1 fl (80-96); MEAN PLT VOLUME 8.6 fl (7.5-11.1); NEUT % 85.5 % (42.8-82.8); PLATELET COUNT 284 10^3/uL (134-434); RBC 5.49 M/mm3 (3.60-5.2); RDW 19.1 % (11.6-15.6); WHITE BLOOD COUNT 12.7 K/mm3 (4.0-10.0)
[2023-02-05 01:15] LABS: POTASSIUM 5.4 mmol/L (3.5-5.1)
[2023-02-05 01:17] LABS: CALCIUM 9.1 mg/dL (8.5-10.1)
[2023-02-05 01:18] LABS: ALBUMIN 3.5 g/dl (3.4-5.0); BLOOD UREA NITROGEN 11.4 mg/dL (7-18)
[2023-02-05 01:20] LABS: CREATININE 0.9 mg/dL (0.55-1.3)
[2023-02-05 01:22] LABS: BILIRUBIN,TOTAL 0.4 mg/dL (0.2-1)
[2023-02-05] MEDS ORDERED: METOCLOPRAMIDE HCL INJECTION 10 MG/2 ML VIAL IVPB ONE (03:00)
[2023-02-05] MEDS ORDERED: METOCLOPRAMIDE HCL INJECTION 10 MG/2 ML VIAL ONE (03:00)
[2023-02-05] MEDS ORDERED: LACTATED RINGERS SOLUTION 1,000 ML/1,000 ML INFUS.BAG IV SCH (04:15)
[2023-02-05 05:31] LABS: POTASSIUM 4.2 mmol/L (3.5-5.1)
[2023-02-05 05:33] LABS: BLOOD UREA NITROGEN 9.2 mg/dL (7-18); CALCIUM 8.3 mg/dL (8.5-10.1)
[2023-02-05 05:37] LABS: CREATININE 0.6 mg/dL (0.55-1.3)
[2023-02-05 05:49] LABS: ANISOCYTOSIS 3+; MACROCYTOSIS 0; ROULEAU 1+
[2023-02-05] MEDS ORDERED: ONDANSETRON 4 MG/2 ML VIAL IVPUSH PRN ×2 (06:30→11:25)
[2023-02-05 06:53] LABS: POTASSIUM 3.5 mmol/L (3.5-5.1)
[2023-02-05 06:55] LABS: ALBUMIN 3.2 g/dl (3.4-5.0); CALCIUM 8.3 mg/dL (8.5-10.1); MAGNESIUM 1.7 mg/dL (1.8-2.4)
[2023-02-05 06:59] LABS: CREATININE 0.6 mg/dL (0.55-1.3); PHOSPHOROUS 2.4 mg/dL (2.5-4.9)
[2023-02-05 07:00] LABS: BILIRUBIN,TOTAL 0.4 mg/dL (0.2-1)
[2023-02-05 07:01] LABS: TOT PROT 6.7 g/dl (6.4-8.2)
[2023-02-05 07:23] LABS: HEMATOCRIT 33.9 % (32.4-45.2); HEMOGLOBIN 10.4 GM/dL (10.7-15.3); MCH 21.3 pg (25.7-33.7); MCHC 30.7 g/dl (32.0-36.0); MEAN CELL VOLUME 69.4 fl (80-96); MEAN PLT VOLUME 8.8 fl (7.5-11.1); PLATELET COUNT 195 10^3/uL (134-434); RBC 4.89 M/mm3 (3.60-5.2); RDW 18.8 % (11.6-15.6); WHITE BLOOD COUNT 12.2 K/mm3 (4.0-10.0)
[2023-02-05] MEDS ORDERED: BUPIVACAINE HCL/PF 0.25% (2.5MG/ML) 10 ML VIAL ONE (08:03)
[2023-02-05] MEDS ORDERED: ROCURONIUM BROMIDE 50 MG/5 ML SYRINGE ONE (08:32)
[2023-02-05] MEDS ORDERED: SUCCINYLCHOLINE CHLORIDE 200 MG/10 ML SYRINGE ONE (08:32)
[2023-02-05] MEDS ORDERED: PROPOFOL 40 ML ONE (08:32)
[2023-02-05] MEDS ORDERED: LIDOCAINE HCL/PF 2% SDV 5ML VIAL ONE (08:33)
[2023-02-05] MEDS ORDERED: MIDAZOLAM HCL 2 MG/2 ML SINGLE DOSE VIAL ONE (08:33)
[2023-02-05] MEDS ORDERED: oxyCODONE HCL 5 MG TABLET PO PRN ×4 (08:47→11:25)
[2023-02-05] MEDS ORDERED: PROMETHAZINE HCL 25 MG/1 ML VIAL IVPB PRN ×2 (08:47→11:25)
[2023-02-05 08:49] VITALS: BMI 33.1
[2023-02-05] MEDS ORDERED: LACTATED RINGERS SOLUTION 1,000 ML IV SCH (09:00)
[2023-02-05] MEDS ORDERED: AMPICILLIN NA/SULBACTAM NA 1.5 GM VIAL IVPB ONE ×2 (09:15→09:17)
[2023-02-05] MEDS ORDERED: SEVOFLURANE 250 ML BTL ONE (09:20)
[2023-02-05] MEDS ORDERED: BUPIVACAINE HCL/PF 0.25% (2.5MG/ML) 10 ML VIAL IJ ONE ×3 (09:30)
[2023-02-05] MEDS ORDERED: KETOROLAC TROMETHAMINE 30 MG/1 ML VIAL ONE (09:37)
[2023-02-05] MEDS ORDERED: NEOSTIGMINE METHYLSULFATE 0.5 MG/1 ML - 10 ML MDV ONE (10:13)
[2023-02-05] MEDS ORDERED: GLYCOPYRROLATE 0.2 MG/1 ML VIAL ONE (10:13)
[2023-02-05] MEDS: AMPICILLIN NA/SULBACTAM NA 1.5 GM in SODIUM CHLORIDE 100 ML IVPB SCH ×2 (10:18→11:38)
[2023-02-05] MEDS: LACTATED RINGERS SOLUTION 1,000 ML IV SCH ×2 (11:29→22:36)
[2023-02-05] MEDS: ACETAMINOPHEN 500 MG TABLET (FP) PO SCH (17:02)
[2023-02-05 17:11] LABS: EPI CELLS >36 /uL (0-25.1); HYALINE CASTS 1 /uL (0-3.1); URINE APPEARANCE CLEAR; URINE BACTERIA 1350 /uL (0-1359); URINE BILIRUBIN NEGATIVE (NEGATIVE); URINE COLOR YELLOW; URINE GLUCOSE (UA) NEGATIVE (NEGATIVE); URINE KETONE NEGATIVE (NEGATIVE); URINE LEUK ESTERASE 1+ (NEGATIVE); URINE NITRITE NEGATIVE (NEGATIVE); URINE PROTEIN NEGATIVE (NEGATIVE); URINE RBC 11 /uL (0-23.9); URINE UROBILINOGEN 0.2 mg/dL (0.2-1.0); URINE WBC 82 /uL (0-25.8)
[2023-02-05] MEDS: KETOROLAC TROMETHAMINE 30 MG/1 ML VIAL IVPUSH SCH (21:30)
[2023-02-06] MEDS: ACETAMINOPHEN 500 MG TABLET (FP) PO SCH ×4 (00:54→17:38)
[2023-02-06] MEDS: KETOROLAC TROMETHAMINE 30 MG/1 ML VIAL IVPUSH SCH ×2 (04:10→10:10)
[2023-02-06] MEDS: LACTATED RINGERS SOLUTION 1,000 ML IV SCH (14:28)
[2023-02-06 18:47] VITALS: BP 128/71; PULSE 73; RESP 18; TEMP 98.6
== END 2023-02-06 18:45 | disposition home or self-care (01) ==
LOC: JER 23:52 → JERBED 02-05 03:35 → J7W 02-05 07:20
PROVIDERS: ADMIT Internal Medicine
PROC: 3E033GC Introduction of Other Therapeutic Substance into Peripheral Vein, Percutaneous Approach (ICD-10-PCS; 2023-02-05)
PROC: 3E033NZ Introduction of Analgesics, Hypnotics, Sedatives into Peripheral Vein, Percutaneous Approach (ICD-10-PCS; 2023-02-05)
PROC: 3E03329 Introduction of Other Anti-infective into Peripheral Vein, Percutaneous Approach (ICD-10-PCS; 2023-02-05)
PROC: 0FT44ZZ Resection of Gallbladder, Percutaneous Endoscopic Approach (ICD-10-PCS; principal; 2023-02-05 08:30)
DX: K81.0 Acute cholecystitis (principal); E78.5 Hyperlipidemia, unspecified; E66.8 Other obesity; Z68.33 Body mass index [BMI] 33.0-33.9, adult; N20.0 Calculus of kidney
CPT/HCPCS: 36415; 76705-TC; 80048; 80053; 81003; 83605; 83690; 83735; 84100; 84703; 85025; 85027; 87086; 88304-TC; 93005; 93010; 94760; 96365; 96375; 96376; 99285-25; G0378

== ENCOUNTER 2023-08-29 13:20 | Emergency (ER) | payer BC, OTHER ==
[2023-08-29 13:33] VITALS: BP 165/97; PULSE 86; RESP 16; TEMP 98.1; BMI 33.3
[2023-08-29 13:58] LABS: HCG,QUALITATIVE URINE Negative
[2023-08-29] MEDS ORDERED: PHENAZOPYRIDINE HCL 100 MG TABLET (FP) PO ONE (14:46)
[2023-08-29] MEDS ORDERED: CEPHALEXIN MONOHYDRATE 500 MG CAPSULE (UD) PO ONE (14:47)
[2023-08-29] MEDS ORDERED: PHENAZOPYRIDINE HCL 100 MG TABLET (FP) ONE (14:49)
[2023-08-29] MEDS ORDERED: CEPHALEXIN MONOHYDRATE 500 MG CAPSULE (UD) ONE (14:49)
== END 2023-08-29 14:56 | disposition home or self-care (01) ==
LOC: FER 13:20
DX: R10.31 Right lower quadrant pain (principal); N30.00 Acute cystitis without hematuria
CPT/HCPCS: 36415; 81003; 81015; 84703; 87086; 87491; 87591; 99283-25

== ENCOUNTER 2024-12-30 19:40 | Inpatient (IN) | payer BC ==
[2024-12-30] MEDS ORDERED: ACETAMINOPHEN INJECTION 100 ML ONE (20:37)
[2024-12-30] MEDS ORDERED: ONDANSETRON 4 MG/2 ML VIAL ONE (20:37)
[2024-12-30] MEDS: LACTATED RINGERS SOLUTION 1000 ML INFUS.BAG IV ONE (21:25)
[2024-12-30] MEDS: ONDANSETRON 4 MG/2 ML VIAL IVPUSH ONE (21:25)
[2024-12-30] MEDS: ACETAMINOPHEN 1000 MG/100 ML BAG IVPB ONE (21:25)
[2024-12-30 21:27] LABS: ABSOLUTE IMMATURE GRANULOCYTES 0.06 x10^3/uL (0.0-0.031); BASOPHILS # 0.05 x10^3/uL (0.01-0.08); EOSINOPHIL % 1.1 % (0.7-5.8); EOSINOPHILS # 0.14 x10^3/uL (0.04-0.36); HEMATOCRIT 37.1 % (34.1-44.9); HEMOGLOBIN 11.4 g/dL (11.2-15.7); MCHC 30.7 g/dl (32.2-35.5); MEAN CELL VOLUME 75.7 fl (79.4-94.8); MONOCYTE # 0.91 x10^3/uL (0.24-0.86); PLATELET COUNT 228 x10^3/uL (182-369); RDW 19.9 % (12.1-16.8)
[2024-12-30 21:34] LABS: EPI CELLS 12 /uL (0-25.1); HYALINE CASTS 2 /uL (0-3.1); URINE APPEARANCE CLOUDY; URINE BACTERIA >9,000 /uL (0-1359); URINE BILIRUBIN NEGATIVE (NEGATIVE); URINE COLOR YELLOW; URINE GLUCOSE (UA) NEGATIVE (NEGATIVE); URINE KETONE 1+ (NEGATIVE); URINE LEUK ESTERASE 3+ (NEGATIVE); URINE NITRITE POSITIVE (NEGATIVE); URINE PROTEIN 1+ (NEGATIVE); URINE RBC 1040 /uL (0-23.9); URINE UROBILINOGEN 0.2 mg/dL (0.2-1.0); URINE WBC 924 /uL (0-25.8)
[2024-12-30 21:51] LABS: POTASSIUM 3.4 mmol/L (3.5-5.1)
[2024-12-30 21:52] LABS: CALCIUM 9.7 mg/dL (8.5-10.1)
[2024-12-30 21:53] LABS: ALBUMIN 3.7 g/dl (3.4-5.0); BLOOD UREA NITROGEN 8.9 mg/dL (7-18); MAGNESIUM 2.2 mg/dL (1.8-2.4)
[2024-12-30 21:56] LABS: CREATININE 0.9 mg/dL (0.55-1.3)
[2024-12-30 21:58] LABS: BILIRUBIN,TOTAL 0.3 mg/dL (0.2-1); TOT PROT 7.3 g/dl (6.4-8.2)
[2024-12-30] MEDS ORDERED: CEFTRIAXONE 1 G/50 ML PREMIX 50 ML IVPB ONE (22:17)
[2024-12-30] MEDS: CEFTRIAXONE 1 GM/50 ML PREMIX IVPB ONE (22:27)
[2024-12-30 22:43] LABS: HCV DIAGNOSTIC IN-HOUSE W/RFLX NON-REACTIVE (NONREACTIVE); HIV INTERPRETATION NEGATIVE (NEGATIVE)
[2024-12-30] MEDS ORDERED: DOCUSATE SODIUM 100 MG CAPSULE (FP) PO PRN (23:29)
[2024-12-31] MEDS ORDERED: KETOROLAC TROMETHAMINE 15 MG/ML VIAL ONE (00:24)
[2024-12-31] MEDS ORDERED: TAMSULOSIN HCL 0.4 MG CAP ONE (00:24)
[2024-12-31] MEDS: D5-1/2NS+20 MEQ KCL - 20 MEQ/1,000 ML INFUS.BAG IV SCH (00:46)
[2024-12-31] MEDS: KETOROLAC TROMETHAMINE 15 MG/ML VIAL IVPUSH ONE (00:46)
[2024-12-31] MEDS: TAMSULOSIN HCL 0.4 MG CAP PO ONE (00:47)
[2024-12-31] MEDS: ACETAMINOPHEN 1000 MG/100 ML BAG IVPB SCH (03:02)
[2024-12-31] MEDS ORDERED: ONDANSETRON 4 MG/2 ML VIAL IVPUSH PRN (03:30)
[2024-12-31 03:32] VITALS: BMI 29.7
[2024-12-31] MEDS ORDERED: KETOROLAC TROMETHAMINE 15 MG/ML VIAL IVPUSH PRN (05:30)
[2024-12-31 08:27] LABS: ABSOLUTE IMMATURE GRANULOCYTES 0.02 x10^3/uL (0.0-0.031); BASOPHILS # 0.04 x10^3/uL (0.01-0.08); EOSINOPHIL % 1.1 % (0.7-5.8); HEMATOCRIT 35.1 % (34.1-44.9); HEMOGLOBIN 10.3 g/dL (11.2-15.7); MCHC 29.3 g/dl (32.2-35.5); MEAN CELL VOLUME 77.1 fl (79.4-94.8); MEAN PLT VOLUME 11.5 fl (9.4-12.3); MONOCYTE # 0.69 x10^3/uL (0.24-0.86); MONOCYTE % 7.6 % (4.7-12.5); PLATELET COUNT 204 x10^3/uL (182-369); RDW 19.4 % (12.1-16.8)
[2024-12-31 08:33] LABS: INR 1.21 (0.83-1.09); PROTHROMBIN TIME (PATIENT) 13.3 SEC (9.7-13.0)
[2024-12-31 08:36] LABS: ACTIVATED PTT 29.7 SECONDS (25.2-36.5); POTASSIUM 3.2 mmol/L (3.5-5.1)
[2024-12-31 08:37] LABS: CALCIUM 8.6 mg/dL (8.5-10.1)
[2024-12-31 08:41] LABS: CREATININE 0.7 mg/dL (0.55-1.3)
[2024-12-31] MEDS: KCL 10 MEQ IVPB 10 MEQ/100 ML INFUS.BAG IVPB SCH (09:33)
[2024-12-31] MEDS: THIAMINE 100 MG TABLET PO SCH (09:35)
[2024-12-31] MEDS: PANTOPRAZOLE 40 MG TABLET PO SCH (09:35)
[2024-12-31] MEDS: CEFTRIAXONE 1 G/50 ML PREMIX 50 ML IVPB SCH (09:36)
[2024-12-31 11:22] VITALS: BP 108/62; PULSE 56; RESP 17; TEMP 98.6
== END 2024-12-31 12:27 | disposition home or self-care (01) | DRG 690 ==
LOC: JER 19:40 → JERFT 19:40 → JERBED 22:43 → OBSVTOIN 22:43 → J8W 12-31 01:25
PROVIDERS: ADMIT Family Medicine; ATTEND Nurse Practitioner Family
DX: N13.6 Pyonephrosis (principal); J45.909 Unspecified asthma, uncomplicated; B96.20 Unspecified Escherichia coli [E. coli] as the cause of diseases classified elsewhere; Z98.84 Bariatric surgery status
CPT/HCPCS: 36415; 74176-TC; 80048; 80053; 81003; 82728; 83540; 83550; 83690; 83735; 84703; 85025; 85610; 85730; 86803; 87086; 87186; 87389; 93005; 93010; 99285-25; G0378